=== PATIENT | female | born 1935 | race Caucasian/White ===

== ENCOUNTER 2019-04-01 15:09 | Emergency (ER) | payer MEDICARE, OTHER, SELFPAY ==
--- NOTE | 2019-04-01 | CTR_ITS ---
PROCEDURE INFORMATION: Exam: CT Head Without Contrast Exam date and time: 04/01/2019 3:47 PM Age: 83 years old Clinical indication: Injury or trauma; Fall; Initial encounter; Blunt trauma (contusions or hematomas) and laceration; Consciousness not specified; Without residual foreign body; Scalp; Additional info: Fall head lac TECHNIQUE: Imaging protocol: Computed tomography of the head without contrast. Total DLP: 769.58 mGy-cm Radiation optimization: All CT scans at this facility use at least one of these dose optimization techniques: automated exposure control; mA and/or kV adjustment per patient size (includes targeted exams where dose is matched to clinical indication); or iterative reconstruction. COMPARISON: No relevant prior studies available. FINDINGS: Brain: There is diffuse volume loss and periventricular low-density compatible with small-vessel disease changes. Mild encephalomalacia of the left cerebellum is noted. There is no midline shift. Ventricles: The ventricular size is appropriate. Bones/joints: Unremarkable. No acute fracture. Sinuses: Visualized sinuses are unremarkable. No fluid levels. Mastoid air cells: Visualized mastoid air cells are well aerated. Soft tissues: Left frontal scalp laceration/hematoma with superficial skin dipika is identified. CT/CT head wo con* [id number] IMPRESSION: 1. Left frontal scalp laceration/hematoma with superficial skin dipika is identified. 2. No acute intracranial abnormality. Chronic findings are noted as above. Radiation Dose CTDIVOL = (mGy): DLP = 769.58 (mGy-cm)
--- NOTE | 2019-04-01 | CTR_ITS ---
PROCEDURE INFORMATION: Exam: CT Cervical Spine Without Contrast Exam date and time: 04/01/2019 3:47 PM Age: 83 years old Clinical indication: Injury or trauma; Fall; Initial encounter; Blunt trauma TECHNIQUE: Imaging protocol: Computed tomography images of the cervical spine without contrast. Total DLP: 307.85 mGy-cm Radiation optimization: All CT scans at this facility use at least one of these dose optimization techniques: automated exposure control; mA and/or kV adjustment per patient size (includes targeted exams where dose is matched to clinical indication); or iterative reconstruction. COMPARISON: No relevant prior studies available. FINDINGS: Vertebrae: No acute fracture. Normal alignment. Severe diffuse degenerative changes are noted with disc space narrowing and small endplate osteophytes. Degenerative appearing anterior listhesis of C6 on C7 is noted. No acute fracture. Discs/Spinal canal/Neural foramina: Moderate diffuse foraminal narrowing is noted in the cervical spine from C4-T1 bilaterally due to marked bony proliferative changes. Soft tissues: Unremarkable. Lungs: Severe emphysematous changes are noted. The lung apices are otherwise clear. CT/CT cervical spin wo con* [id number] IMPRESSION: No acute fracture. Radiation Dose CTDIVOL = (mGy): DLP = 307.85 (mGy-cm)
[2019-04-01 15:10] VITALS: BP 109/54; PULSE 97; RESP 17; TEMP 36.8; O2SAT 96; BMI 22.8
--- NOTE | 2019-04-01 15:18 | ED_ITS ---
Entered by Rachel Vargas, acting as scribe for HPI - Syncope General: Chief Complaint: Syncope Stated Complaint: LAC TO HEAD S/P FALL Time Seen by Provider: 04/01/19 15:17 Source: patient Mode of arrival: EMS Limitations: no limitations History of Present Illness: HPI narrative: 83 yo Female presents to ED with complaint of syncope and head laceration post fall. Pt states she was using the restroom when she passed out and fell off the toilet hitting her head. Pt has a laceration to the top of her head. Pt also has a skin tear to her left hand MD complaint: loss of consciousness Onset (ago): hour(s) Witnessed: No Context: during exertion (attempting to use the bathroom) Injuries sustained associated with event: head Review of Systems General: Reports: 10 or more systems reviewed and unremarkable except in HPI and below Card: Reports: syncope GI: Reports: constipation Skin/Breast: Reports: other (laceration to top of head) PFSH ED PFSH: Statuses (acute, chronic, etc) shown below reflect problem list status as previously entered and may not be historically accurate Social History Smoking and tobacco status: former smoker Physical Exam Const: COMMON NORMALS: no apparent distress, average body habitus, oriented x3, no limitations, healthy appearing, alert and well nourished HENMT: COMMON NORMALS: normocephalic, hearing grossly normal bilaterally, external ears normal, EAC's normal, TM's normal bilaterally, external nose kary l, nasal mucous membranes and turbinates normal, moist oral mucous membranes, oropharynx normal, dentition normal and gingiva normal; head/scalp not atraumatic HEAD & SCALP: normocephalic and laceration; not atraumatic NOSE: external nose normal and nasal mucous membranes and turbinates normal EXTERNAL EAR: Yes external ears normal EXTERNAL AUDITORY CANAL: EAC's normal TYMPANIC MEMBRANE: TM's normal bilaterally Eye: COMMON NORMALS: PERRL, EOMs intact bilaterally, conjunctivae normal, no scleral icterus, no papilledema, normal visual chirinos by confrontation and fundi normal bilaterally CONJUNCTIVA: Yes conjunctivae normal PUPIL: Yes PERRL DIRECT OPHTHALMOSCOPY: Yes no papilledema and Yes fundi normal bilaterally Neck/C-Spine: COMMON NORMALS: full ROM, no lymphadenopathy, supple, no meningeal signs, no JVD, thyroid normal and no carotid bruits THYROID: thyroid normal Chest: COMMONS NORMALS: inspection of chest normal and palpation of chest normal Resp: COMMON NORMALS: normal respiratory effort, no retractions, no use of accessory muscles, clear to auscultation bilaterally and percussion normal AUSCULTATION: clear to auscultation bilaterally PERCUSSION: percussion normal Cardio: COMMON NORMALS: no JVD, regular rate, regular rhythm, S1 normal heart sound, S2 normal heart sound, no gallops, no clicks, no murmurs, no rub and peripheral pulses 2+ throughout RATE: regular rate RHYTHM: regular rhythm HEART SOUNDS: S1 normal and S2 normal PERIPHERAL PULSES: pulses 2+ throughout GI: COMMON NORMALS: normal to inspection, nondistended, normoactive bowel sounds, soft to palpation, non-tender, no hepatosplenomegaly, no masses and no bruits PALPATION: Yes soft and Yes no hepatosplenomegaly : COMMON NORMALS: Yes no CVA tenderness and Yes external appearance normal BLADDER/KIDNEY EXAM: Yes no CVA tenderness Back/Pelvis: COMMON NORMALS: no CVA tenderness, thoracic and lumbar spine normal to inspection, no thoracic nor lumbar tenderness, thoraco-lumbar ROM normal and straight leg raise negative bilaterally Extremity: COMMON NORMALS: normal to inspection, full ROM, normal capillary refill, no joint enlargement, no clubbing, cyanosis or edema, no calf tenderness and no pedal edema Neuro: COMMON NORMALS: oriented x3 SENSORIUM/ORIENTATION: Yes alert MENINGEAL SIGNS: Yes no meningeal signs Skin: COMMON NORMALS: no rashes or lesions noted, no wounds, skin turgor normal, no jaundice, no petechiae and no mottling GENERAL SKIN EXAM: no rashes or lesions noted and turgor normal Procedures Laceration Laceration 1: Site: scalp Size (cm): 12 Description: flap, irregular and clean Depth: involves muscle layer Local Anesthetic: lidocaine 1% and with epi Amount of anesthesia used (mL): 8 Pre-repair: wound explored and irrigated extensively Skin layer closed with: other (surgical dipika) Subcutaneous layer closed with: vicryl Size: 4-0 Course Vital Signs: Vital signs: Vital Signs Temperature 98.2 F 04/01/19 15:10 Pulse Rate 76 04/01/19 16:51 Respiratory Rate 20 H 04/01/19 16:51 Blood Pressure 119/63 04/01/19 16:51 Pulse Oximetry 94 04/01/19 16:51 MDM - Syncope Lab Data: Labs: Lab Results 04/01/19 04/01/19 04/01/19 Range/Units 15:59 15:59 15:59 WBC 9.5 (4.0-10.0) 10^3/ uL RBC 4.14 (4.1-5.3) 10^6/u L Hgb 13.2 (11.5-15.3) g/dL Hct 40.0 (37.0-47.0) % MCV 96.6 (81-99) fL MCH 31.9 (28.0-34.0) pg MCHC 33.0 (30.0-36.0) g/dL RDW 14.3 (12.1-15.1) % Plt Count 281 (130-400) 10^3/c mm MPV 9.5 (7.4-10.4) fL Neut % (Auto) 73.6 % Lymph % (Auto) 17.6 % Hamblen % (Auto) 7.2 % Eos % (Auto) 0.6 % Baso % (Auto) 0.6 % Neut # (Auto) 7.0 (1.8-7.7) 10^3/u L Lymph # (Auto) 1.7 (0.8-4.8) 10^3/u L Hamblen # (Auto) 0.7 (0.2-0.9) 10^3/u L Eos # (Auto) 0.1 (0.0-0.8) 10^3/u L Baso # (Auto) 0.1 (0.0-0.1) 10^3/u L Nucleated RBC % (a uto) 0 % Nucleated RBCs # 0.0 /100WBC Sodium 138 (136-145) mmol/L Potassium 3.9 (3.5-5.1) mmol/L Chloride 102 (98-107) mmol/L Carbon Dioxide 21 L (22-29) mmol/L Anion Gap 18.9 (5-19) BUN 27 H (8-23) mg/dL Creatinine 1.1 H (0.5-0.9) mg/dL Glucose 181 H (74-106) mg/dL Lactate 2.5 H (0.5-2.2) mmol/L Calcium 10.2 (8.8-10.2) mg/Dl Total Bilirubin 0.4 (0.15-1.2) mg/dL AST 29 (0-32) U/L ALT 27 (0-33) U/L Alkaline Phosphata se 132 H (35-105) IU/L Troponin T Baselin e (0-10) ng/mL Total Protein 7.0 (6.6-8.7) g/dL Albumin 4.3 (3.5-5.2) g/dL Globulin 2.7 (1.3-4.6) g/dL Urine Color (Yellow) Urine Appearance (CLEAR) Urine pH (5-7) Ur Specific Gravit y (1.005-1.030) Urine Protein (Negative) Urine Glucose (UA) (Normal) Urine Ketones (Negative) Urine Occult Blood (Negative) Urine Nitrate (Negative) Urine Bilirubin (NEGATIVE) Urine Urobilinogen (Negative) mg/dL Ur Leukocyte Pam ase (Negative) Urine RBC (0-2) /hpf Urine WBC (0-5) /hpf Ur Squamous Epith Cells (0-5) Urine Bacteria (NONE) Hyaline Casts Urine Mucus 04/01/19 04/01/19 Range/Units 15:59 16:32 WBC (4.0-10.0) 10^3/ uL RBC (4.1-5.3) 10^6/u L Hgb (11.5-15.3) g/dL Hct (37.0-47.0) % MCV (81-99) fL MCH (28.0-34.0) pg MCHC (30.0-36.0) g/dL RDW (12.1-15.1) % Plt Count (130-400) 10^3/c mm MPV (7.4-10.4) fL Neut % (Auto) % Lymph % (Auto) % Hamblen % (Auto) % Eos % (Auto) % Baso % (Auto) % Neut # (Auto) (1.8-7.7) 10^3/u L Lymph # (Auto) (0.8-4.8) 10^3/u L Hamblen # (Auto) (0.2-0.9) 10^3/u L Eos # (Auto) (0.0-0.8) 10^3/u L Baso # (Auto) (0.0-0.1) 10^3/u L Nucleated RBC % (a uto) % Nucleated RBCs # /100WBC Sodium (136-145) mmol/L Potassium (3.5-5.1) mmol/L Chloride (98-107) mmol/L Carbon Dioxide (22-29) mmol/L Anion Gap (5-19) BUN (8-23) mg/dL Creatinine (0.5-0.9) mg/dL Glucose (74-106) mg/dL Lactate (0.5-2.2) mmol/L Calcium (8.8-10.2) mg/Dl Total Bilirubin (0.15-1.2) mg/dL AST (0-32) U/L ALT (0-33) U/L Alkaline Phosphata se (35-105) IU/L Troponin T Baselin e 19 H (0-10) ng/mL Total Protein (6.6-8.7) g/dL Albumin (3.5-5.2) g/dL Globulin (1.3-4.6) g/dL Urine Color Yellow (Yellow) Urine Appearance Sl hazy (CLEAR) Urine pH 5 (5-7) Ur Specific Gravit y 1.025 (1.005-1.030) Urine Protein Neg (Negative) Urine Glucose (UA) Norm (Normal) Urine Ketones Negative (Negative) Urine Occult Blood Neg (Negative) Urine Nitrate Negative (Negative) Urine Bilirubin Neg (NEGATIVE) Urine Urobilinogen Norm (Negative) mg/dL Ur Leukocyte Pam ase Negative (Negative) Urine RBC None (0-2) /hpf Urine WBC 0-4 H (0-5) /hpf Ur Squamous Epith Cells 10-15 H (0-5) Urine Bacteria Trace (NONE) Hyaline Casts 25-40 H Urine Mucus 1+ Imaging Data^: CT C-Spine: Radiologist's impression: [address] [address] [address] Scan Report Signed Patient: Elsa Faust MR#: [id number] : 1935 Acct:[id number] Age/Sex: 83 / F ADM Date: 04/01/19 Loc: ER Attending Dr: Ordering Physician: Parminder Borja DO Date of Service: 04/01/19 Procedure(s): CT cervical spin wo con* [id number] Accession Number(s): [id number] cc: Parminder Borja DO PROCEDURE INFORMATION: Exam: CT Cervical Spine Without Contrast Exam date and time: 04/01/2019 3:47 PM Age: 83 years old Clinical indication: Injury or trauma; Fall; Initial encounter; Blunt trauma TECHNIQUE: Imaging protocol: Computed tomography images of the cervical spine without contrast. Total DLP: 307.85 mGy-cm Radiation optimization: All CT scans at this facility use at least one of these dose optimization techniques: automated exposure control; mA and/or kV adjustment per patient size (includes targeted exams where dose is matched to clinical indication); or iterative reconstruction. COMPARISON: No relevant prior studies available. FINDINGS: Vertebrae: No acute fracture. Normal alignment. Severe diffuse degenerative changes are noted with disc space narrowing and small endplate osteophytes. Degenerative appearing anterior listhesis of C6 on C7 is noted. No acute fracture. Discs/Spinal canal/Neural foramina: Moderate diffuse foraminal narrowing is noted in the cervical spine from C4-T1 bilaterally due to marked bony proliferative changes. Soft tissues: Unremarkable. Lungs: Severe emphysematous changes are noted. The lung apices are otherwise clear. CT/CT cervical spin wo con* [id number] IMPRESSION: No acute fracture. Radiation Dose CTDIVOL = (mGy): DLP = 307.85 (mGy-cm) Dictated By: Shari Palm 04/01/19 1612 Signed By: Shari Palm 04/01/[address] Head: Radiologist's impression: [address] [address] [address] Scan Report Signed Patient: Elsa Faust MR#: [id number] : 1935 Acct:[id number] Age/Sex: 83 / F ADM Date: 04/01/19 Loc: ER Attending Dr: Ordering Physician: Parminder Borja DO Date of Service: 04/01/19 Procedure(s): CT head wo con* [id number] Accession Number(s): [id number] cc: Parminder Borja DO PROCEDURE INFORMATION: Exam: CT Head Without Contrast Exam date and time: 04/01/2019 3:47 PM Age: 83 years old Clinical indication: Injury or trauma; Fall; Initial encounter; Blunt trauma (contusions or hematomas) and laceration; Consciousness not specified; Without residual foreign body; Scalp; Additional info: Fall head lac TECHNIQUE: Imaging protocol: Computed tomography of the head without contrast. Total DLP: 769.58 mGy-cm Radiation optimization: All CT scans at this facility use at least one of these dose optimization techniques: automated exposure control; mA and/or kV adjustment per patient size (includes targeted exams where dose is matched to clinical indication); or iterative reconstruction. COMPARISON: No relevant prior studies available. FINDINGS: Brain: There is diffuse volume loss and periventricular low-density compatible with small-vessel disease changes. Mild encephalomalacia of the left cerebellum is noted. There is no midline shift. Ventricles: The ventricular size is appropriate. Bones/joints: Unremarkable. No acute fracture. Sinuses: Visualized sinuses are unremarkable. No fluid levels. Mastoid air cells: Visualized mastoid air cells are well aerated. Soft tissues: Left frontal scalp laceration/hematoma with superficial skin dipika is identified. CT/CT head wo con* [id number] IMPRESSION: 1. Left frontal scalp laceration/hematoma with superficial skin dipika is identified. 2. No acute intracranial abnormality. Chronic findings are noted as above. Radiation Dose CTDIVOL = (mGy): DLP = 769.58 (mGy-cm) Dictated By: Shari Palm 04/01/19 1610 Signed By: Shari Palm 04/01/19 1612 Discharge Plan Discharge Patient Disposition: Home, Self-Care Clinical Impression: Vasovagal syncope Scalp laceration Qualifiers: Encounter type: initial encounter Qualified Code(s): S01.01XA - Laceration without foreign body of scalp, initial encounter Condition: Stable Discharge Orders: Discharge Order (Routine); Ordered 04/01/19 Ordered By: Parminder Borja Referrals: Selma Aviles DO [Primary Care Provider] - Discharge Diet: Usual diet Discharge Activity: staple removal in 10 days Patient Instructions: Scalp Laceration, Laceration (ED), Wound Care (General) Coding Level of Care Code ED Drill Press Operator For Metal for Chg Fwd Exam Problem Focused The documentation recorded by the Alicia patricio Carmen, accurately reflects the service I personally performed and the decisions made by me, Parminder Borja, Apr 01, 2019 15:09
--- NOTE | 2019-04-01 15:45 | ECG_ITS ---
Measurements Intervals [place] Rate: 99 P: 84 W[place]: 133 QRS: 82 QRSD: 94 T: 59 QT: 355 QTc: 457 SINUS RHYTHM WITH OCCASIONAL ECTOPIC PREMATURE COMPLEXES Compared to ECG 06/27/2018 09:32:48 Ectopic atrial rhythm no longer present Atrial abnormality no longer present Electronically Signed On 04-02-2019 5:56:59 BUS GREASER by Olga Larose M.D. [id number]
[2019-04-01 16:02] VITALS: BP 108/54; PULSE 81; RESP 18; O2SAT 91
[2019-04-01 16:07] LABS: Basophils # 0.1 10^3/uL (0.0-0.1); Basophils % 0.6 %; Eosinophils # 0.1 10^3/uL (0.0-0.8); Eosinophils % 0.6 %; Hemoglobin 13.2 g/dL (11.5-15.3); Lymphocytes # 1.7 10^3/uL (0.8-4.8); Lymphocytes % 17.6 %; Mean Corpuscular Hemoglobin 31.9 pg (28.0-34.0); Mean Corpuscular Volume 96.6 fL (81-99); Mean Platelet Volume 9.5 fL (7.4-10.4); Monocytes # 0.7 10^3/uL (0.2-0.9); Monocytes % 7.2 %; Neutrophils % 73.6 %; Nucleated Red Blood Cells % 0 %; Platelet Count 281 10^3/cmm (130-400); Red Blood Count 4.14 10^6/uL (4.1-5.3); Red Cell Distribution Width 14.3 % (12.1-15.1); White Blood Count 9.5 10^3/uL (4.0-10.0)
[2019-04-01] MEDS: sodium chloride 0.9% 1,000 ML 999 ML IV (16:11)
[2019-04-01] MEDS: ondansetron 2 mg/ML SDV 2 mL 4 MG IVP (16:11)
[2019-04-01 16:31] VITALS: BP 119/63; PULSE 81; RESP 17; O2SAT 94
[2019-04-01 16:37] LABS: Lactate (Lactic Acid level) 2.5 mmol/L (0.5-2.2)
[2019-04-01 16:38] LABS: Alanine Aminotransferase 27 U/L (0-33); Albumin Level 4.3 g/dL (3.5-5.2); Alkaline Phosphatase 132 IU/L (35-105); Anion Gap 18.9 (5-19); Aspartate Amino Transferase 29 U/L (0-32); Blood Urea Nitrogen 27 mg/dL (8-23); Calcium 10.2 mg/Dl (8.8-10.2); Carbon Dioxide 21 mmol/L (22-29); Chloride 102 mmol/L (98-107); Globulin 2.7 g/dL (1.3-4.6); Glucose 181 mg/dL (74-106); Potassium 3.9 mmol/L (3.5-5.1); Sodium 138 mmol/L (136-145); Total Bilirubin 0.4 mg/dL (0.15-1.2); Troponin(5th) Baseline 19 ng/mL (0-10)
[2019-04-01 16:51] VITALS: BP 119/63; PULSE 76; RESP 20; O2SAT 94
[2019-04-01 17:22] LABS: Bilirubin Urine Neg (NEGATIVE); Blood Urine Neg (Negative); Glucose Urine UA Norm (Normal); Ketones Urine Negative (Negative); Leukocyte Esterase Urine Negative (Negative); Nitrate Urine Negative (Negative); Protein Urine Neg (Negative); Specific Gravity, Urine 1.025 (1.005-1.030); Urine Appearance SL Hazy (CLEAR); Urine Color Yellow (Yellow); Urobilinogen Urine Norm (Negative); pH Urine 5 (5-7)
[2019-04-01 17:23] LABS: WBC Urine 0-4 /hpf (0-5)
[2019-04-01 17:24] LABS: Bacteria Urine TRACE; Hyaline Casts Urine 25-40; Mucus Urine 1+
[2019-04-01 17:25] LABS: Add Urine Culture? No
[2019-04-01 17:44] VITALS: BP 94/52; PULSE 82; RESP 18; O2SAT 93
--- NOTE | 2019-04-01 17:45 | ECG_ITS ---
Measurements Intervals [place] Rate: 99 P: 84 [place]: 133 QRS: 82 QRSD: 94 T: 59 QT: 355 QTc: 457 SINUS RHYTHM WITH OCCASIONAL ECTOPIC PREMATURE COMPLEXES Compared to ECG 06/27/2018 09:32:48 Ectopic atrial rhythm no longer present Atrial abnormality no longer present Electronically Signed On 04-02-2019 6:01:48 ICT ANALYST by Olga Larose M.D. [email or web address]
== END 2019-04-01 18:12 | disposition home or self-care (01) ==
PROVIDERS: Emergency Provider Family Medicine; Family Provider Family Medicine; PCP Family Medicine
DX: R55 Syncope and collapse (principal); S01.01XA Laceration without foreign body of scalp, initial encounter; W18.11XA Fall from or off toilet without subsequent striking against object, initial encounter; Z87.891 Personal history of nicotine dependence
CPT/HCPCS: 13121; 13122; 70450; 72125; 80053; 81001; 83605; 84484; 85025; 93005; 96360; 96361; 96372; 96374; 99283; J2001; J2405; J7030

== ENCOUNTER 2019-04-26 10:03 | Outpatient (CLI) | payer MEDICARE, OTHER, SELFPAY ==
--- NOTE | 2019-04-26 10:18 | MM_ITS ---
WS: [id number] SCREENING DIGITAL MAMMOGRAM WITH CAD HISTORY: SCREENING COMPARISON: 01/18/2018 and 05/27/2010 Bilateral CC and MLO views submitted. Computer aided detection analyzed. Breast composition: There are scattered areas of fibroglandular density. No suspicious masses, microc alcifications or architectural distortion. Nipple are very slightly inverted and not in profile. Willa lar appearance to prior studies. Benign calcification medial LEFT breast. MM/[place] [id number] IMPRESSION: BI-RADS: 2-Benign FOLLOW UP: 1 Year Follow-up
== END 2019-04-26 10:04 | disposition home or self-care (01) ==
LOC: RADSHAW 10:15
PROVIDERS: Family Provider Family Medicine; PCP Family Medicine; Visit Provider Family Medicine
DX: Z12.31 Encounter for screening mammogram for malignant neoplasm of breast (principal)
CPT/HCPCS: 77067

== ENCOUNTER → 2019-05-01 09:38 | Outpatient (BNVA) | payer MEDICARE, OTHER, SELFPAY | PROVIDERS: Family Provider Family Medicine; PCP Family Medicine; Visit Provider Family Medicine | DX: K52.9 Noninfective gastroenteritis and colitis, unspecified (principal); R79.89 Other specified abnormal findings of blood chemistry | CPT/HCPCS: 80053; 87493; 87505 ==

== ENCOUNTER 2019-08-02 12:43 | Outpatient (CLI) | payer MEDICARE, OTHER, SELFPAY ==
--- NOTE | 2019-08-02 15:15 | XR_ITS ---
WS: [id number] DEXA (DUAL ENERGY X-RAY ABSORPTIOMETRY) Bone mineral density was performed using a Apprion machine. HISTORY: DEXA COMPARISON: None available. Lumbar spine BMD (L1-L4): 1.037 g/cm2 T score: -1.2 Z score: 1.2 Total hip BMD: Left: 0.836 g/cm2. T score: -1.4 Z score: 1.2 Right: 0.803 g/cm2. T score: -1.6 Z score: 0.9 10 year probability of a major osteoporotic fracture is 11%. XR/XR DEXA axial skeleton* [id number] IMPRESSION: OSTEOPENIA based upon the WHO classification for females.
== END 2019-08-02 12:44 | disposition home or self-care (01) ==
LOC: RADWPI 12:47
PROVIDERS: Family Provider Family Medicine; PCP Family Medicine; Visit Provider Family Medicine
DX: Z78.0 Asymptomatic menopausal state (principal); M85.89 Other specified disorders of bone density and structure, multiple sites
CPT/HCPCS: 77080

== ENCOUNTER → 2019-08-13 10:00 | Outpatient (BNVA) | payer MEDICARE, OTHER, SELFPAY | PROVIDERS: Family Provider Family Medicine; PCP Family Medicine; Visit Provider Internal Medicine | DX: K52.9 Noninfective gastroenteritis and colitis, unspecified (principal) | CPT/HCPCS: 84443 ==

== ENCOUNTER 2019-08-17 09:06 | Day surgery (SDC) | payer MEDICARE, OTHER, SELFPAY ==
[2019-08-15 12:14] VITALS: BMI 23.0
--- NOTE | 2019-08-17 09:12 | P.HP_ITS ---
Same Day Surgery H&P Indication for Procedure/HPI DATE OF PROCEDURE: August 17, 2019 CHIEF COMPLAINT/INDICATIONFOR SURGICAL PROCEDURE: Chronic diarrhea PREOP DIAGNOSIS: Chronic diarrhea PLANNED PROCEDRUE: Operation Date: 08/17/19 10:40 Proposed Procedures p EGD/COLON 51402 23023 K52.9(Not Applicable) - Pal Medrano MD s Colonoscopy(Not Applicable) - Pal Medrano MD Medications/Allergies* Home Medications Medication Instructions Recorded Confirmed Type aspirin 81 mg tablet,delayed 81 mg PO ONCE 04/10/19 08/13/19 History release clopidogrel 75 mg tablet 75 mg PO DAILY tab 04/28/19 08/13/19 History Allergies/Adverse Reactions Allergy/AdvReac Type Severity Reaction Status Date / Time amoxicillin [From Augmentin] Allergy ALGY-Swell Verified 08/13/19 14:36 Lip/Tongue/Throat clavulanic acid Allergy ALGY-Swell Verified 08/13/19 14:36 [From Augmentin] Lip/Tongue/Throat Sulfa (Sulfonamide Allergy ALGY-Swell Verified 08/13/19 14:36 Antibiotics) Lip/Tongue/Throat Pertinent History/Comorbid Conditions* Medical History (Updated 07/03/19 @ 10:42 by Cristo Abdi MD) COPD (chronic obstructive pulmonary disease) Dyslipidemia Leriche syndrome Mesenteric artery stenosis PAD (peripheral artery disease) Tobacco abuse Surgical History (Updated 07/03/19 @ 10:42 by Cristo Abdi MD) H/O: hysterectomy History of cholecystectomy History of tonsillectomy S/P aortobifemoral bypass surgery Family History (Updated 04/28/19 @ 11:57 by Rena Kaufman LPN) CAD (coronary artery disease) Cancer Social History Smoking and tobacco status: former smoker Alcohol intake: never Pertinent Exam Findings alert, oriented x 3, clear to auscultation bilaterally, regular rate & rhythm, operative site marked and procedure specific exam findings Recommendations Surgery/Procedure today Coding Level of Care Code Acute Environmental Science Program Director for Yenifer Quick
[2019-08-17 09:30] VITALS: BP 85/59; PULSE 89; RESP 18; TEMP 36.4; O2SAT 95
[2019-08-17] MEDS: sodium chloride 0.9% 1,000 ML 30 ML IV (09:52)
--- NOTE | 2019-08-17 10:02 | ANES.PREANE2 ---
Pre-Anesthetic Assessment Pre-Anesthetic Assessment: Height/Weight: Height 1.52 m Weight 53.524 kg Temp Pulse Resp BP Pulse Ox 97.6 F 89 18 85/59 95 08/17/19 09:30 08/17/19 09:30 08/17/19 09:30 08/17/19 09:30 08/17/19 09:30 Preop Diagnosis: Colitis Proposed Procedure: Operation Date: 08/17/19 10:40 Proposed Procedures p EGD/COLON 24636 [id number] K52.9(Not Applicable) - Pal Medrano MD s Colonoscopy(Not Applicable) - Pal Medrano MD Familial anesthetic complications: None Was Beta Lucia taken within 24 hours: N/A Last intake: Intake Last Liquid Date 08/16/19 Last Liquid Time 21:30 Last Solid Date 08/16/19 Last Solid Time 18:00 Social: Social History: No alcohol and No tobacco Exam: Pre-Anes Outpt Exam: alert, oriented x 3, clear to auscultation bilaterally and regular rate & rhythm Airway: Cervical ROM: WNL MP: 2 Additional comments: edentulous Pulmonary: Pulmonary: None reported CV/HEM: CV/HEM: PVD (on cilostazol and plavix (last took plavix yesterday morning)) : : None reported Hepatic: Hepatic: None reported GI: GI: None reported Metabolic: Metabolic: None reported Musc/skel: Musc/skel: None reported Neuropsych: Neuropsych: None reported Anesthetic Plan: ASA status: 2 Anesthesia: MAC Risk of > 500 ml blood loss (7ml/kg in children): No Meds/Allergies Current Medications: Current Medications Generic Name Dose Route Start Last Admin Trade Name Freq PRN Reason Stop Dose Admin Sodium Chloride 1,000 mls @ 30 ml s/hr 08/17/19 09:30 08/17/19 09:52 Sodium Chloride 0.9% IV 30 mls/hr .Q24H JAROD Administration PFSH Anesthesia PFSH: Medical History COPD (chronic obstructive pulmonary disease) Dyslipidemia Leriche syndrome Mesenteric artery stenosis PAD (peripheral artery disease) Tobacco abuse Surgical History H/O: hysterectomy History of cholecystectomy History of tonsillectomy S/P aortobifemoral bypass surgery Family History Other CAD (coronary artery disease) Cancer Social History Smoking and tobacco status: former smoker Alcohol intake: never Female Reproductive History: Para: 1 Spontaneous abortions: No Data Anesthesia Cardiac Studies: No Data to Display
[2019-08-17 12:20] VITALS: BP 122/73; PULSE 78; RESP 18; TEMP 36; O2SAT 100
[2019-08-17 12:52] VITALS: BP 142/89; PULSE 89; RESP 18; O2SAT 93
[2019-08-21 11:25] LABS: H. Pylori / CLO Test Negative
== END 2019-08-17 13:00 | disposition home or self-care (01) ==
PROVIDERS: PCP Family Medicine; Visit Provider Internal Medicine
PROC: 0DJ08ZZ Inspection of Upper Intestinal Tract, Via Natural or Artificial Opening Endoscopic (ICD-10-PCS; CPT 43235; principal; 2019-08-17 10:35)
PROC: 0DJD8ZZ Inspection of Lower Intestinal Tract, Via Natural or Artificial Opening Endoscopic (ICD-10-PCS; CPT 45378; 2019-08-17 10:35)
DX: K52.9 Noninfective gastroenteritis and colitis, unspecified (principal); K29.70 Gastritis, unspecified, without bleeding; K57.30 Diverticulosis of large intestine without perforation or abscess without bleeding; J44.9 Chronic obstructive pulmonary disease, unspecified; E78.5 Hyperlipidemia, unspecified; F17.210 Nicotine dependence, cigarettes, uncomplicated; Z82.49 Family history of ischemic heart disease and other diseases of the circulatory system
CPT/HCPCS: 12345; 43239; 45378; 82274; 83630; 87077; 87493; 87506; J2704; J7030

== ENCOUNTER 2020-01-18 12:31 | Outpatient (CLI) | payer MEDICARE, OTHER, SELFPAY ==
--- NOTE | 2020-01-18 12:45 | USCV_ITS ---
Elsa Faust Age: 84 Gender: F : 1935 Exam Date: 01/18/2020 13:10 Ordering Phys: Zachery Conklin M.D ([email or web address]) Technologist: Bismark Patterson Exam Location: [facility] Indication: SOB BP: 110 / 68 HR: 80 Rhythm: Sinus Technical Quality: Fair MEASUREMENTS (Male / Female) Normal Values 2D ECHO LV Diastolic Diameter PLAX 3.1 cm 4.2 - 5.9 / 3.9 - 5.3 cm LV Systolic Diameter PLAX 1.7 cm IVS Diastolic Thickness 1.0 cm 0.6 - 1.0 / 0.6 - 0.9 cm IVS Systolic Thickness 1.3 cm LVPW Diastolic Thickness 0.9 cm 0.6 - 1.0 / 0.6 - 0.9 cm LVPW Systolic Thickness 1.4 cm LVOT Diameter 2.0 cm LV Ejection Fraction 2D Teich 77.2 % LV Ejection Fraction MOD 2C 82.4 % LV Ejection Fraction 2C AL 82.8 % LA Diameter 2.7 cm LA Width 2.6 cm LA Height 2.9 cm RA Width 2.4 cm RA Height 3.2 cm Aorta at Sinotubular Diameter 0.8 cm M-MODE LV Diastolic Diameter MM 5.4 cm 4.2 - 5.9 / 3.9 - 5.3 cm LV Systolic Diameter MM 3.5 cm LV Ejection Fraction MM Teich 62.4 % IVS Diastolic Thickness MM 0.8 cm 0.6 - 1.0 / 0.6 - 0.9 cm IVS Systolic Thickness MM 1.4 cm LVPW Diastolic Thickness MM 1.1 cm 0.6 - 1.0 / 0.6 - 0.9 cm LVPW Systolic Thickness MM 1.9 cm RV Diastolic Diameter MM 1.3 cm Aortic Annulus Diameter 2.7 cm LA Ao Ratio MM 1.2 MV E Point Septal Separation 0.9 cm DOPPLER AV Peak Velocity 193.0 cm/s LVOT Peak Velocity 118.0 cm/s AV Area Cont Eq vti 1.9 cm squared AV Area Cont Eq pk 1.8 cm squared MV Area PHT 5.0 cm squared Mitral E to A Ratio 0.7 MV E' Velocity 34.5 cm/s Mitral E to MV E' Ratio 7.3 Mitral E to LV E' Lateral Ratio 6.4 Mitral E to LV E' Septal Ratio 8.4 TR Peak Velocity 123.0 cm/s TR Peak Gradient 6.1 mmHg TV Peak E Velocity 76.0 cm/s Right Atrial Pressure 3.0 mmHg Pulmonary Artery Systolic Pressu 9.1 mmHg PV Peak Velocity 108.0 cm/s FINDINGS Left Ventricle Normal left ventricular size, systolic function and wall thickness, with no regional wall motion abnormalities. LVEF is 60 to 65%. Normal left ventricular wall thickness. Grade 1 diastolic dysfunction. Normal filling pressures. Right Ventricle The right ventricle is normal in size and function. Right Atrium The right atrium is normal in size. Left Atrium The left atrium is normal in size. Mitral Valve Structurally normal mitral valve without significant stenosis or prolapse. There is no mitral regurgitation. Aortic Valve Aortic valve is not well-visualized. No significant stenosis.. There is no aortic regurgitation. Tricuspid Valve Structurally normal tricuspid valve without significant stenosis or regurgitation. Insufficient TR jet to calculate RVSP. Pulmonic Valve Pulmonic valve is not well-visualized. There is no pulmonic regurgitation. Pericardium Normal pericardium without effusion. Aorta Normal ascending aorta dimension. CONCLUSIONS LV systolic function is normal with EF of 60 to 65%. Grade 1 diastolic dysfunction with normal filling pressures. No significant valvular heart disease is noted. Compared to prior study from 03/07/2018, no significant changes are noted. Zachery Conklin MD (Electronically Signed) Final Date: 22 January 2020 17:17 S
== END 2020-01-18 12:32 | disposition home or self-care (01) ==
LOC: RAD 12:35
PROVIDERS: PCP Family Medicine; Visit Provider Internal Medicine
DX: R06.02 Shortness of breath (principal)
CPT/HCPCS: 93306

== ENCOUNTER 2020-04-02 08:54 | Outpatient (CLI) | payer MEDICARE, OTHER, SELFPAY ==
--- NOTE | 2020-04-02 08:59 | MR_ITS ---
WS: [id number] MRI BRAIN WITH HIGH-RESOLUTION IMAGING THROUGH THE INTERNAL AUDITORY CANALS WITHOUT AND WITH CONTRAST HISTORY: Bilateral SENSORINEURAL HEARING LOSS COMPARISON: 01/19/2010 TECHNIQUE: Multiplanar, multisequence imaging is performed through the brain. Additional 3 mm imaging performed in multiple planes through the internal auditory canal. Postcontrast imaging with 20 ml's of Prohance. No acute intracranial hemorrhage, midline shift, edema or mass effect. No acute infarcts. Mild cerebral atrophy and moderate chronic microvascular ischemic disease. Additio nal chronic ischemic changes bilaterally within the eden. No prior infarcts. There has been a moderat e progression of the chronic ischemic changes since 2009. Ventricles and extra-axial spaces are normal. No inferior displacement of cerebellar tonsils. Clivus and pituitary gland are normal. Internal and external auditory canals: Unremarkable. Cranial nerves VII and VIII complexes: Unremarkable. No enhancement or mass. Cerebellopontine angles: Normal. Paranasal sinuses: Normal. Mastoid air cells: Small amount of fluid in the LEFT mastoid air cells. Coalescence of air cells in t he LEFT posterior mastoid air cells. On the recent CT this may be an area of fibrous dysplasia. Calvarium and scalp: Normal. Visualized mechoopda of Smalls and dural venous sinuses demonstrate no abnormality. MR/MR iac's wo/w con* [id number] IMPRESSION: Normal MRI IACs. Moderate progression of chronic microvascular ischemic changes throughout the w rios matter and bilaterally within the eden since 2009.
== END 2020-04-02 08:55 | disposition home or self-care (01) ==
LOC: RADSHAW 08:57
PROVIDERS: PCP Family Medicine; Visit Provider Specialist
DX: H90.3 Sensorineural hearing loss, bilateral (principal)
CPT/HCPCS: 70553; A9579

== ENCOUNTER 2020-05-28 14:35 | Outpatient (CLI) | payer MEDICARE, OTHER, SELFPAY ==
--- NOTE | 2020-05-28 14:40 | MM_ITS ---
WS: [id number] BILATERAL SCREENING DIGITAL MAMMOGRAM WITH CAD HISTORY: SCREENING COMPARISON: 04/26/2019, 01/18/2018 Bilateral CC and MLO views submitted. Computer aided detection analyzed. Breast composition: There are scattered areas of fibroglandular density. No suspicious masses, microc alcifications or architectural distortion. Difficulty obtaining lateral and craniocaudad images of th e LEFT breast with the nipple in profile. After several images the appearance of the LEFT breast is s imilar to prior studies. No suspicious masses or calcifications. MM/[place] [id number] IMPRESSION: BI-RADS: 2-Benign FOLLOW UP: 1 Year Follow-up
== END 2020-05-28 14:36 | disposition home or self-care (01) ==
LOC: RADSHAW 14:37
PROVIDERS: PCP Family Medicine; Visit Provider Family Medicine
DX: Z12.31 Encounter for screening mammogram for malignant neoplasm of breast (principal)
CPT/HCPCS: 77067

== ENCOUNTER → 2020-06-27 11:25 | Outpatient (BNVA) | payer MEDICARE, OTHER, SELFPAY | PROVIDERS: PCP Family Medicine; Visit Provider Internal Medicine | DX: R06.02 Shortness of breath (principal) | CPT/HCPCS: 82785; 85025; 86003 ==

== ENCOUNTER 2020-07-14 15:05 | Outpatient (CLI) | payer MEDICARE, OTHER, SELFPAY ==
--- NOTE | 2020-07-14 15:13 | XRR_ITS ---
PROCEDURE INFORMATION: Exam: XR Abdomen Exam date and time: 07/14/2020 3:15 PM Age: 85 years old Clinical indication: Condition or disease; Other: K52.9 - noninfective gastroenteritis and colitis, unspecified; Prior surgery; Surgery type: Gb, bypass, aorta, hyst TECHNIQUE: Imaging protocol: XR of the abdomen. Views: Frontal supine view of the abdomen. 1 View. COMPARISON: 1. CR Upper GI w Air and SBS* [id number] 01/31/2018 8:[address] abdomen pelvis w con* [id number] 12/14/2016 9:20:14 AM FINDINGS: Gastrointestinal tract: Small hyperdensities in the pelvis which could represent ingested materials. Organs: The gallbladder is likely surgically absent, with metallic clips overlying the gallbladder fossa. Vasculature: Calcification of the left upper quadrant splanchnic vasculature is present. The iliac arteries show moderate bilateral atherosclerotic calcifications without evidence of aneurysm. Bones/joints: Bilateral lower lumbar facet primary osteoarthritis. XR/XR KUB [id number] IMPRESSION: 1. Prior cholecystectomy. 2. No acute abdominal or pelvic abnormality identified.
== END 2020-07-14 15:06 | disposition home or self-care (01) ==
LOC: RAD 15:10
PROVIDERS: PCP Family Medicine; Visit Provider Internal Medicine
DX: K52.9 Noninfective gastroenteritis and colitis, unspecified (principal); Z90.49 Acquired absence of other specified parts of digestive tract
CPT/HCPCS: 74018; 83630; 87493; 87506

== ENCOUNTER 2020-09-01 08:42 | Outpatient (CLI) | payer MEDICARE, OTHER, SELFPAY ==
[2020-09-01 09:19] VITALS: BMI 21.4
--- NOTE | 2020-09-01 09:49 | NMCV_ITS ---
NM ji perf SPECT r/s* [id number] Ivelisse Faustline Age: 85 Gender: F : 1935 Exam Date: 09/01/2020 10:31 Ordering Phys: Hernando Ivan MD Technologist: JORGE Walls Exam Location: [facility] Indications: SHORTNESS OF BREATH STRESS TEST Please see separate stress test report in [facility] for full findings IMAGE PROTOCOL Rest/Stress 1 Lexiscan Day Radiopharmaceutical Dose (mCi) Administration Site Administered by Rest: Tc-99m 10.8 IV JORGE Walls Sestamibi Stress:Tc-99m 32.2 IV JORGE Hernández Sestamibi Rest: 01-Sep-2020 60 Discovery 630 Stress: 01-Sep-2020 30 Discovery 630 0.4mg Lexiscan. Images obtained in supine and prone position. SPECT RESULTS Technical Quality: Excellent Raw Data Analysis: Normal Image Corrections: No attenuation or motion correction applied Summed Stress Score: 0 Summed Rest Score: 0 Summed Difference Score: 0 PERFUSION FINDINGS There is homogenous radiotracer uptake throughout the myocardium. No evidence of ischemia FUNCTIONAL RESULTS (calculated via Gated SPECT) Stress Image LV EF (%): 86 Stress EDV (mL):57 TID: 0.8 Stress ESV (mL):8 FUNCTIONAL FINDINGS: There is normal left ventricular systolic function. IMPRESSIONS 1. Normal myocardial perfusion imaging with no evidence of ischemia 2. LV systolic function is normal Zachery Conklin MD (Electronically Signed) Final Date: 02 September 2020 15:25 S
--- NOTE | 2020-09-01 09:49 | ECG_ITS ---
[facility] Test Date: 2020-09-01 Pat Name: Elsa Faust Department: Room: Gender: Female [employer] Sales Representative: : 1935 Requested By: [employer]Place Marzena Order Number: [id number] Martni MD: Zachery Conklin M.D. Interpretive Statements NAME OF STUDY: LEXISCAN SESTAMIBI STRESS TEST INDICATION: [Shortness of Breath, ] Procedure: At the baseline, the blood pressure was 163/80 mmHg with a heart rate of 69 bpm. The electrocardiogram showed normal sinus rhythm, normal axis with normal ST and T's. The Lexiscan was infused over a period of 20 seconds. A total of 0.4 mg of Lexiscan was infused. The stress phase was continued for a total of 5 minutes. Heart rate was at the end of stress phase was 92 bpm and a blood pressure of 133/66 mmHg. The EKG at the peak infusion revealed since normal sinus rhythm with no significant ST-T wave changes. Sestamibi was injected 20 seconds after the Lexiscan infusion. Blood pressure at the end of recovery phase was 130/66 mmHg with a heart rate of 90 bpm. Conclusion: 1. Normal EKG response to Lexiscan infusion 2. No Lexiscan induced chest pain or cardiac arrhythmia. 3. Normal blood pressure and heart rate response. 4. Sestamibi/sestamibi perfusion scan pending; see separate report. Electronically Signed On 10-19-2020 18:01:00 CDT by Zachery Conklin M.D. [id number]
[2020-09-01] MEDS: regadenoson 0.4 Mg/5 ml Syringe IVP (11:04)
[2020-09-01 11:21] VITALS: BP 130/66; PULSE 91
== END 2020-09-01 08:43 | disposition home or self-care (01) ==
LOC: CDL 08:45
PROVIDERS: PCP Family Medicine; Visit Provider Internal Medicine Critical Care Medicine
DX: R06.02 Shortness of breath (principal)
CPT/HCPCS: 78452; 93017; A9500; J2785

== ENCOUNTER 2020-09-03 12:50 | Outpatient (CLI) | payer MEDICARE, OTHER, SELFPAY ==
--- NOTE | 2020-09-03 13:30 | CT_ITS ---
WS: [id number] CT ABDOMEN PELVIS TECHNIQUE: Contrast-enhanced CT of the abdomen and pelvis with coronal and sagittal reformatted image s. CLINICAL INFORMATION: ongoing abdominal pain COMPARISON: CT November 2016 DLP: 643.[address] scans at [facility] use at least one of these dose optimization techniques: automat ed exposure control; mA and/or kV adjustment per patient size (includes targeted exams where dose is matched to clinical indication); or iterative reconstruction. FINDINGS: Diffuse fatty infiltration liver. Normal portal vein and splenic vein. Small esophageal hiatal hernia . Normal spleen. Lung bases are well aerated. Prior cholecystectomy. Normal portal vein and splenic v ein. Prominent common bile duct likely physiologic postcholecystectomy unchanged. Slight prominence of the small bowel loops with air-fluid levels. Persistent air within the colon. No evidence of high-grade obstruction. Sigmoid diverticulosis. No evidence of acute diverticulitis. Tin y fat-containing umbilical hernia. No herniated bowel aortoiliac bypass graft appears patent. Dense c alcification with occlusion of the [place] distal aorta unchanged. Urine distended bladder. Adrenal glands are normal. Normal renal parenchymal enhancement. No hydronep hrosis. No free fluid in the pelvis. Disc space narrowing worse L5-S1. CT/CT abdomen pelvis w con* [id number] IMPRESSION: 1. Slightly prominent small bowel loops with air-fluid levels. Persistent air within the colon. No evidence of high-grade obstruction. 2. Diffuse fatty infiltration liver. Hepatomegaly. 3. Prior cholecystectomy. 4. Urine distended bladder. 5. Patent aortoiliac bypass graft. 6. Small esophageal hiatal hernia. 7. Diverticulosis.
[2020-09-03 13:38] LABS: Blood Urea Nitrogen 28 mg/dL (8-23)
[2020-09-03] MEDS: iohexol 300 mg/mL 50 mL Btl PO (13:39)
[2020-09-03] MEDS: iodixanol 320 mg/mL 100mL Btl IV (13:52)
== END 2020-09-03 12:51 | disposition home or self-care (01) ==
PROVIDERS: PCP Family Medicine; Visit Provider Internal Medicine
DX: R10.9 Unspecified abdominal pain (principal); K76.0 Fatty (change of) liver, not elsewhere classified; R16.0 Hepatomegaly, not elsewhere classified; Z90.49 Acquired absence of other specified parts of digestive tract; N32.89 Other specified disorders of bladder; K44.9 Diaphragmatic hernia without obstruction or gangrene; K57.90 Diverticulosis of intestine, part unspecified, without perforation or abscess without bleeding
CPT/HCPCS: 74177; 82565; 84520; Q9967

== ENCOUNTER → 2020-09-04 09:11 | Outpatient (BNVA) | payer MEDICARE, OTHER, SELFPAY | PROVIDERS: PCP Family Medicine; Visit Provider Family Medicine | DX: E78.5 Hyperlipidemia, unspecified (principal); K52.9 Noninfective gastroenteritis and colitis, unspecified | CPT/HCPCS: 80053; 80061 ==

== ENCOUNTER → 2020-11-16 13:24 | Outpatient (BNVA) | payer MEDICARE, OTHER, SELFPAY | PROVIDERS: PCP Family Medicine; Visit Provider Nurse Practitioner | DX: M25.532 Pain in left wrist (principal) | CPT/HCPCS: 73110 ==

== ENCOUNTER → 2021-02-17 14:36 | Outpatient (BNVA) | payer MEDICARE, OTHER, SELFPAY | PROVIDERS: PCP Family Medicine; Visit Provider Specialist | DX: R20.0 Anesthesia of skin (principal); R20.2 Paresthesia of skin; M25.531 Pain in right wrist; M25.532 Pain in left wrist; Z87.891 Personal history of nicotine dependence | CPT/HCPCS: 95910 ==

== ENCOUNTER → 2021-04-09 15:48 | Outpatient (BNVA) | payer MEDICARE, OTHER, SELFPAY | PROVIDERS: PCP Family Medicine; Visit Provider Family Medicine | DX: M79.641 Pain in right hand (principal); M79.642 Pain in left hand; L57.0 Actinic keratosis; G56.90 Unspecified mononeuropathy of unspecified upper limb; Z68.20 Body mass index [BMI] 20.0-20.9, adult; F17.211 Nicotine dependence, cigarettes, in remission | CPT/HCPCS: 80053; 85025; 85651; 86038; 86140; 86200; 86431 ==

== ENCOUNTER → 2021-05-14 09:12 | Outpatient (BNVA) | payer MEDICARE, OTHER, SELFPAY | PROVIDERS: PCP Family Medicine; Visit Provider Internal Medicine Rheumatology | DX: M05.79 Rheumatoid arthritis with rheumatoid factor of multiple sites without organ or systems involvement (principal); Z79.899 Other long term (current) drug therapy; M15.4 Erosive (osteo)arthritis; Z11.59 Encounter for screening for other viral diseases; Z11.1 Encounter for screening for respiratory tuberculosis; N18.9 Chronic kidney disease, unspecified; Z71.85 Encounter for immunization safety counseling | CPT/HCPCS: 99204 ==

== ENCOUNTER → 2021-06-23 13:28 | Outpatient (BNVA) | payer MEDICARE, OTHER, SELFPAY | PROVIDERS: PCP Family Medicine; Visit Provider Internal Medicine Critical Care Medicine | DX: J44.9 Chronic obstructive pulmonary disease, unspecified (principal); I49.9 Cardiac arrhythmia, unspecified; J30.9 Allergic rhinitis, unspecified; Z87.891 Personal history of nicotine dependence | CPT/HCPCS: 99214 ==

== ENCOUNTER → 2021-07-07 13:10 | Outpatient (BNVA) | payer MEDICARE, OTHER, SELFPAY | PROVIDERS: PCP Family Medicine; Visit Provider Internal Medicine | DX: J44.9 Chronic obstructive pulmonary disease, unspecified (principal); I73.9 Peripheral vascular disease, unspecified; E78.5 Hyperlipidemia, unspecified; Z95.828 Presence of other vascular implants and grafts; Z87.891 Personal history of nicotine dependence | CPT/HCPCS: 99213; 99214 ==

== ENCOUNTER → 2021-07-21 08:41 | Outpatient (BNVA) | payer MEDICARE, OTHER, SELFPAY | PROVIDERS: PCP Family Medicine; Visit Provider Otolaryngology | DX: D23.22 Other benign neoplasm of skin of left ear and external auricular canal (principal); Z87.891 Personal history of nicotine dependence | CPT/HCPCS: 99203 ==

== ENCOUNTER 2021-08-03 14:35 | Outpatient (CLI) | payer MEDICARE, OTHER, SELFPAY ==
--- NOTE | 2021-08-03 14:57 | MM_ITS ---
WS: [id number] BILATERAL 3D TOMOSYNTHESIS DIGITAL SCREENING MAMMOGRAPHY WITH CAD CLINICAL INFORMATION: SCREENING HISTORY: Screening mammogram. No current complaints. COMPARISON: May 28, 2020 TECHNIQUE: Bilateral CC and MLO views. FINDINGS: Scattered fibroglandular densities bilaterally. Lucent centered calcification LEFT breast. No suspici ous focal mass, asymmetry, calcifications, or architectural distortion. No evidence of malignancy. MM/[place] [id number] IMPRESSION: BI-RADS: 2-Benign FOLLOW UP: 1 Year Follow-up Recommend return to annual screening mammography.
[2021-08-03 15:14] LABS: Basophils # 0.1 10^3/uL (0.0-0.1); Basophils % 0.5 %; Eosinophils # 0.1 10^3/uL (0.0-0.8); Eosinophils % 1.4 %; Hematocrit 42.5 % (37.0-47.0); Hemoglobin 13.8 g/dL (11.5-15.3); Lymphocytes % 21.4 %; Mean Corpuscular HGB Conc 32.5 g/dL (30.0-36.0); Mean Corpuscular Volume 98.6 fl (81-99); Mean Platelet Volume 9.7 fL (7.4-10.4); Monocytes % 11.3 %; Neutrophils # 5.97 10^3/uL (1.8-7.7); Nucleated Red Blood Cells % 0 %; Platelet Count 251 10^3/cmm (130-400); Red Blood Count 4.31 10^6/uL (4.1-5.3); Red Cell Distribution Width 15.1 % (12.1-15.1); White Blood Count 9.2 10^3/uL (4.0-10.0)
[2021-08-03 15:29] LABS: Alanine Aminotransferase 19 U/L (0-33); Albumin Level 3.9 g/dL (3.5-5.2); Alkaline Phosphatase 108 IU/L (35-105); Aspartate Amino Transferase 23 U/L (0-32); Total Bilirubin 0.3 mg/dL (0.15-1.2); Total Protein 6.9 g/dL (6.6-8.7)
== END 2021-08-03 14:36 | disposition home or self-care (01) ==
LOC: RADSHAW 14:39
PROVIDERS: PCP Family Medicine; Referring Provider Internal Medicine Rheumatology; Visit Provider Family Medicine
DX: Z12.31 Encounter for screening mammogram for malignant neoplasm of breast (principal); M05.79 Rheumatoid arthritis with rheumatoid factor of multiple sites without organ or systems involvement; Z79.899 Other long term (current) drug therapy
CPT/HCPCS: 36415; 77063; 77067; 80076; 82565; 85025; 86140

== ENCOUNTER → 2021-08-10 10:59 | Outpatient (BNVA) | payer MEDICARE, OTHER, SELFPAY | PROVIDERS: PCP Family Medicine; Visit Provider Internal Medicine Rheumatology | DX: M05.79 Rheumatoid arthritis with rheumatoid factor of multiple sites without organ or systems involvement (principal); M15.4 Erosive (osteo)arthritis; Z79.899 Other long term (current) drug therapy; Z79.52 Long term (current) use of systemic steroids; N18.9 Chronic kidney disease, unspecified; Z71.85 Encounter for immunization safety counseling | CPT/HCPCS: 99214 ==

== ENCOUNTER → 2021-12-01 09:23 | Outpatient (BNVA) | payer MEDICARE, OTHER, SELFPAY | PROVIDERS: PCP Family Medicine; Visit Provider Otolaryngology | DX: B37.0 Candidal stomatitis (principal); Z87.891 Personal history of nicotine dependence | CPT/HCPCS: 99213 ==

== ENCOUNTER 2021-12-01 09:52 | Outpatient (CLI) | payer MEDICARE, OTHER, SELFPAY ==
[2021-12-01 11:06] LABS: Basophils # 0.1 10^3/uL (0.0-0.1); Basophils % 0.7 %; Eosinophils # 0.1 10^3/uL (0.0-0.8); Eosinophils % 1.3 %; Hematocrit 42.8 % (37.0-47.0); Hemoglobin 13.8 g/dL (11.5-15.3); Lymphocytes # 1.6 10^3/uL (0.8-4.8); Mean Corpuscular HGB Conc 32.2 g/dL (30.0-36.0); Mean Corpuscular Hemoglobin 32.5 pg (28.0-34.0); Mean Corpuscular Volume 100.7 fl (81-99); Mean Platelet Volume 9.5 fL (7.4-10.4); Monocytes # 0.8 10^3/uL (0.2-0.9); Monocytes % 9.6 %; Neutrophils # 6.09 10^3/uL (1.8-7.7); Neutrophils % 69.8 %; Nucleated Red Blood Cells % 0 %; Platelet Count 227 10^3/cmm (130-400); Red Blood Count 4.25 10^6/uL (4.1-5.3); Red Cell Distribution Width 14.6 % (12.1-15.1); White Blood Count 8.7 10^3/uL (4.0-10.0)
[2021-12-01 11:25] LABS: Alanine Aminotransferase 23 U/L (0-33); Albumin Level 4.6 g/dL (3.5-5.2); Alkaline Phosphatase 118 U/L (35-105); Aspartate Amino Transferase 26 U/L (0-32); C Reactive Protein 5.8 mg/L (0.0-4.9); Globulin 2.4 g/dL (1.3-4.6); Total Bilirubin 0.5 mg/dL (0.15-1.2)
== END 2021-12-01 09:53 | disposition home or self-care (01) ==
LOC: LAB 09:55
PROVIDERS: PCP Family Medicine; Visit Provider Internal Medicine Rheumatology
DX: M05.79 Rheumatoid arthritis with rheumatoid factor of multiple sites without organ or systems involvement (principal); Z79.899 Other long term (current) drug therapy; M19.90 Unspecified osteoarthritis, unspecified site
CPT/HCPCS: 36415; 80076; 82565; 85025; 86140

== ENCOUNTER → 2021-12-09 10:45 | Outpatient (BNVA) | payer MEDICARE, OTHER, SELFPAY | PROVIDERS: PCP Family Medicine; Visit Provider Internal Medicine Rheumatology | DX: M05.79 Rheumatoid arthritis with rheumatoid factor of multiple sites without organ or systems involvement (principal); M15.4 Erosive (osteo)arthritis; Z79.899 Other long term (current) drug therapy; Z71.85 Encounter for immunization safety counseling; N18.9 Chronic kidney disease, unspecified; Z79.52 Long term (current) use of systemic steroids | CPT/HCPCS: 99214 ==

== ENCOUNTER → 2021-12-30 09:51 | Outpatient (BNVA) | payer MEDICARE, OTHER, SELFPAY | PROVIDERS: PCP Family Medicine; Visit Provider Otolaryngology | DX: B37.0 Candidal stomatitis (principal) | CPT/HCPCS: 99213 ==

== ENCOUNTER → 2022-01-05 14:41 | Outpatient (BNVA) | payer MEDICARE, OTHER, SELFPAY | PROVIDERS: PCP Family Medicine; Visit Provider Internal Medicine | DX: I73.9 Peripheral vascular disease, unspecified (principal); J44.9 Chronic obstructive pulmonary disease, unspecified; E78.5 Hyperlipidemia, unspecified; Z95.828 Presence of other vascular implants and grafts | CPT/HCPCS: 99213; 99214 ==

== ENCOUNTER → 2022-01-13 15:16 | Outpatient (BNVA) | payer MEDICARE, OTHER, SELFPAY | PROVIDERS: PCP Family Medicine; Visit Provider Otolaryngology | DX: R13.10 Dysphagia, unspecified (principal) | CPT/HCPCS: 31575; 99213 ==

== ENCOUNTER → 2022-02-01 09:26 | Outpatient (BNVA) | payer MEDICARE, OTHER, SELFPAY | PROVIDERS: PCP Family Medicine; Visit Provider Otolaryngology | DX: K13.79 Other lesions of oral mucosa (principal) | CPT/HCPCS: 99214 ==

== ENCOUNTER 2022-02-04 09:10 | Day surgery (SDC) | payer MEDICARE, OTHER, SELFPAY ==
[2022-02-03 12:39] VITALS: BMI 18.4
[2022-02-04 10:11] VITALS: BP 150/62; PULSE 82; RESP 18; TEMP 37; O2SAT 94
--- NOTE | 2022-02-04 10:39 | W.PM.OPSUD ---
Surgery/Procedure H&P Update DATE OF PROCEDURE: February 04, 2022 DATE H&P PERFORMED: 02/01/22 H&P UPDATE INFORMATION: I have reviewed H&P completed within last 30 days, I have examined patient prior to procedure and No changes to prior documentation CHANGES TO PREVIOUS DOCUMENTATION: No changes PREOP DIAGNOSIS: Oral mucosal mass PRIMARY INDICATION FOR PROCEDURE: Left retromolar trigone soft tissue mass PLANNED PROCEDURE: Operation Date: 02/04/22 11:05 Proposed Procedures p [id number]- Exision of left oral mucosal lesion with frozen section K13.79(Left) - Dave Mix MD
[2022-02-04] MEDS: sodium chloride 0.9% 1,000 ML 30 ML IV (10:48)
[2022-02-04] MEDS: levofloxacin-dextrose 5 % 500 MG/100 ML PREMIX 100 MG IV (12:22)
--- NOTE | 2022-02-04 13:25 | PM.OP ---
Operative Report Date of procedure: February 04, 2022 Pre-op diagnosis: Preop Diagnosis Oral mucosal mass Post-op diagnosis: Same Post-op findings: 1 cm mucosal covered raised lesion left retromolar trigone mucous membrane excised completely. Procedure done: Excision of left retromolar trigone mass/lesion. Implants: No implants Specimens removed/disposition: Left retromolar trigone mass excised. Pathology: Left retromolar trigone mass forwarded to pathology for frozen section. No malignancy identified. Surgeon: Dave Mix MD Anesthesia: General and Local Estimated blood loss: 15 mL Complications: No complications encountered Findings: Patient has a raised 1 cm mass mucosal covered extending between the upper and lower alveolar ridges posteriorly in the retromolar trigone area. It is firm. No ulceration or erythema. Dentist wanted this removed for diagnostic purposes. Therefore the patient is being brought to the operating room for this procedure. Brief History: 86-year-old female patient who is edentulous has a 1 cm raised pink mucosal covered firm mass in the left retromolar trigone mucous membrane region. It is not painful. It does not bleed. Concerned that this could be a neoplasm. Patient therefore being brought to the operating room to undergo excision of this mass with frozen section and treatment as needed. The procedure its risks and complications were explained and understood. Informed consent was granted and witnessed. Risks included bleeding and infection and scarring and swelling and bruising and recurrence and need for additional treatment. Also anesthetic risks. Procedure: Description of procedure: The patient was placed on the operating table in the supine position. Adequate general endotracheal tube anesthesia was obtained. She was given antibiotics for prophylaxis. The table was rotated 90 degrees. Her head was dropped 15 degrees to the horizontal. Eyes were taped shut and head drape was applied in usual fashion. At this point a timeout was accomplished identifying the patient date of plan procedure allergies fire risk and medications given. With all in agreement the procedure continued. A Jin Shmuel mouthgag was inserted over the endotracheal tube and tongue ensuring that the upper gingiva was in the guard. This was positioned such that the tongue was held out of the surgical site. The lesion in the left retromolar trigone area was very obvious at this point. This mass was palpated and found to be definitely firm and indurated. Not mobile. I excised the mass with small margins down to the underlying musculature. Specimen was forwarded to the pathologist for frozen section diagnosis. Pressure was applied for about 10 minutes. Then hemostasis was attained with needle tip Bovie. Further pressure was applied until the frozen section returned as benign with no evidence of malignancy. With that information in hand with no active bleeding seen the defect was closed with a running 3-0 Vicryl suture. No bleeding was seen after this. It was irrigated with saline. No bleeding again. A throat pack that had been placed at the beginning of the procedure was removed. The throat was suctioned with Yankauer suction. Again no bleeding was noted. Patient was then returned to anesthesiology for wake-up and extubation. The patient tolerated the procedure well and estimated blood loss of 15 mL and arrived in recovery in stable condition.
[2022-02-04 13:30] VITALS: BP 102/56; PULSE 79; RESP 23; TEMP 36.6; O2SAT 99
[2022-02-04 13:35] VITALS: BP 108/61; PULSE 76; RESP 30; O2SAT 98
[2022-02-04 13:40] VITALS: BP 117/66; PULSE 75; RESP 24; O2SAT 94
[2022-02-04 13:44] VITALS: BP 119/66; PULSE 76; RESP 22; TEMP 37; O2SAT 94
[2022-02-04 13:54] VITALS: BP 115/61; PULSE 77; RESP 18; TEMP 36.8; O2SAT 90
--- NOTE | 2022-02-04 13:55 | ANES.PREANE2 ---
Pre-Anesthetic Assessment Height/Weight: Height 1.57 m Weight 45.813 kg Temp Pulse Resp BP Pulse Ox O2 Del Method O2 Flow Rate 98.2 F 77 18 115/61 90 10 02/04/22 13:54 02/04/22 13:54 02/04/22 13:54 02/04/22 13:54 02/04/22 13:54 02/04/22 13:54 02/04/22 13:35 Preop Diagnosis: Oral mucosal mass Operation Date: 02/04/22 11:05 Proposed Procedures p 61053- Exision of left oral mucosal lesion with frozen section K13.79(Left) - Dave Mix MD Familial anesthetic complications: none Was Beta Lucia taken within 24 hours: N/A Was Clonidine taken within 24 hours: N/A Last intake: Intake Last Liquid Date 02/03/22 Last Liquid Time 21:00 Last Solid Date 02/03/22 Last Solid Time 18:00 Social No alcohol and No tobacco (h/o smoking) Exam alert, oriented x 3, clear to auscultation bilaterally and regular rate & rhythm Airway Submandibular: within normal limits Cervical ROM: within normal limits Mallampati: Class II Pulmonary Chronic Obstructive Pulmonary Disease CV/HEM Arrythmia and Peripheral Vascular Disease GI Gastroesophageal Reflux Disease Musc/skel Osteoarthritis/DJD and Rheumatoid Arthritis Neuropsych Neuropathy Anesthetic Plan ASA status: 3 Anesthesia: Choice Medications/Allergies Home Medications Medication Instructions Recorded Confirmed Last Taken Type Lactobacillus acidophilus 10 mg PO DAILY 07/29/20 02/04/22 02/03/22 History (Acidophilus capsule) clopidogrel 75 mg tablet (Plavix) 75 mg PO DAILY #90 tabs 07/07/21 02/04/22 02/03/22 Rx leflunomide 20 mg tablet 20 mg PO DAILY #30 tabs 12/09/21 02/04/22 02/03/22 Rx pantoprazole 40 mg tablet,delayed 40 mg PO DAILY #30 tabs 12/17/21 02/04/22 02/03/22 Rx release tramadol 50 mg tablet 50 mg PO BID PRN pain #60 tabs 12/29/21 02/03/22 Unknown Rx cetirizine 10 mg capsule (Zyrtec) 10 mg PO DAILY 02/03/22 02/04/22 02/03/22 History cilostazol 100 mg tablet 100 mg PO BID 02/03/22 02/04/22 02/03/22 History dicyclomine 10 mg capsule 10 mg PO TID PRN abdominal 02/03/22 02/04/22 02/03/22 History distention Allergies Allergy/AdvReac Type Severity Reaction Status Date / Time amoxicillin [From Augmentin] Allergy ALGY-Swell Verified 02/03/22 12:36 Lip/Tongue/Throat clavulanic acid Allergy ALGY-Swell Verified 02/03/22 12:36 [From Augmentin] Lip/Tongue/Throat gabapentin Allergy ADR-Confusi Verified 02/03/22 12:36 on Sulfa (Sulfonamide Allergy ALGY-Swell Verified 02/03/22 12:36 Antibiotics) Lip/Tongue/Throat Current Medications Generic Name Dose Route Start Last Admin Trade Name Freq PRN Reason Stop Dose Admin Sodium Chloride 1,000 mls @ 30 mls/hr 02/04/22 09:45 02/04/22 10:48 Sodium Chloride 0.9% IV 02/05/22 09:44 30 mls/hr .Q24H JAROD Administration PFSH Anesthesia Medical History Acute rheumatoid arthritis Allergic rhinosinusitis COPD (chronic obstructive pulmonary disease) Dyslipidemia Erosive osteoarthritis of both hands Exertional shortness of breath High risk medication use Immunization counseling 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 H/O: hysterectomy History of cholecystectomy History of tonsillectomy S/P aortobifemoral bypass surgery Family History Other CAD (coronary artery disease) Cancer Rheumatoid arthritis Social History Smoking and tobacco status: never smoked Quit status (tobacco): has quit using tobacco Year quit tobacco: 2016 Former quit date comment: 2PPD x 60 Years, started smoking at age 19 Second hand smoke exposure: No Smoking risk assessment/counseling performed?: No Alcohol intake: never Counseling given: No Counseling given: No Lives independently: Yes Household members: none Marital status: / Current occupational status: retired History of recent travel: No Current gender identity: Female Female Reproductive History Para: 1 Spontaneous abortions: No Data Anesthesia Cardiac Studies: Echocardiogram Ultrasound 01/18/20 Sestamibi Stress Test (Cardiology) 09/01/20
--- NOTE | 2022-02-04 15:27 | ANE.PACU2 ---
Inpatient post-anesthesia follow up: Airway intact: Yes Vital signs: Temperature 98.2 F Pulse Rate 77 Respiratory Rate 18 Blood Pressure 115/61 Pulse Oximetry 90 Oxygen Delivery Me thod Room Air Oxygen Flow Rate 10 Fraction of Inspir ed Oxygen Hydration adequate: Yes Nausea and vomiting: No Pain level: 2 Mental status: Baseline
== END 2022-02-04 14:24 | disposition home or self-care (01) ==
PROVIDERS: PCP Family Medicine; Visit Provider Otolaryngology
PROC: (CPT 40810; principal; 2022-02-04 10:55)
DX: K13.79 Other lesions of oral mucosa (principal); J44.9 Chronic obstructive pulmonary disease, unspecified; K21.9 Gastro-esophageal reflux disease without esophagitis; M06.9 Rheumatoid arthritis, unspecified; E78.5 Hyperlipidemia, unspecified; Z79.899 Other long term (current) drug therapy
CPT/HCPCS: 40810; 88305; 88331; J1956; J2370; J2405; J3010; J3490; J7030

== ENCOUNTER → 2022-02-10 08:18 | Outpatient (BNVA) | payer MEDICARE, OTHER, SELFPAY | PROVIDERS: PCP Family Medicine; Visit Provider Otolaryngology | DX: Z48.814 Encounter for surgical aftercare following surgery on the teeth or oral cavity (principal); K13.79 Other lesions of oral mucosa | CPT/HCPCS: 99024 ==

== ENCOUNTER 2022-02-23 14:04 | Emergency (ER) | payer MEDICARE, OTHER, SELFPAY ==
[2022-02-23 14:11] VITALS: BP 113/65; PULSE 108; RESP 16; TEMP 37; O2SAT 95; BMI 19.9
--- NOTE | 2022-02-23 14:56 | W.ED.GENADLT ---
HPI - General Adult General: Chief complaint: General Medical Stated complaint: postsurgery on mouth complication Time Seen by Provider: 02/23/22 14:20 History of Present Illness: Patient is a 86-year-old female comes to the ED with postsurgical complication. 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 Mix back on February 04. They used absorbable sutures. One of the absorbable sutures is still present and has a long tail that is been bothering her. She also states that this morning she woke up and for the first time she had some bleeding from procedure site. Bleeding resolved later this morning. she denies any re-bleeding. Associated symptoms: Deny chest pain, dyspnea, headache(s), nausea, rash, palpitations or vomiting Review of Systems Const: Denies: fever(s), chills or fatigue Eyes: Denies: change in vision or eye discomfort ENMT: Reports: other (post surgical site in throat complaint); Denies: throat pain, odynophagia, nasal discharge or nasal congestion Card: Denies: chest pain, palpitations, edema, swelling of feet/ankles, dyspnea on exertion or orthopnea Resp: Denies: dyspnea, productive cough or non-productive cough GI: Denies: abdominal pain, nausea, vomiting, diarrhea, constipation or hematochezia : Denies: flank pain, dysuria or hematuria Musc: Denies: neck pain, back pain or extremity swelling Skin/Breast: Denies: rash or new lesions Neuro: Denies: headache(s), numbness in extremities or weakness in extremities PFS ED PFSH: Medical History Acute rheumatoid arthritis Allergic rhinosinusitis COPD (chronic obstructive pulmonary disease) Dyslipidemia Erosive osteoarthritis of both hands Exertional shortness of breath High risk medication use Immunization counseling 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 H/O: hysterectomy History of cholecystectomy History of tonsillectomy S/P aortobifemoral bypass surgery Family History Other CAD (coronary artery disease) Cancer Rheumatoid arthritis Social History Smoking and tobacco status: never smoked Quit status (tobacco): has quit using tobacco Year quit tobacco: 2016 Former quit date comment: 2PPD x 60 Years, started smoking at age 19 Second hand smoke exposure: No Smoking risk assessment/counseling performed?: No Alcohol intake: never Counseling given: No Counseling given: No Lives independently: Yes Household members: none Marital status: / Current occupational status: retired History of recent travel: No Current gender identity: Female Female Reproductive History: Para: 1 Spontaneous abortions: No Physical Exam Const: COMMON NORMALS: no acute distress, patient oriented x3, healthy appearing and alert GENERAL APPEARANCE: cooperative and comfortable HENMT: COMMON NORMALS: normocephalic HEAD & SCALP: normocephalic MOUTH: Normal oral and palatal mucosa present THROAT: posterior oropharynx normal and uvula midline OTHER: Patient's posterior oropharynx region there is suture with a long tail noted. Surgical site is healing well and there is no active bleeding. Neck/C-Spine: COMMON NORMALS: supple GENERAL: Yes normal visual inspection Resp: COMMON NORMALS: normal respiratory effort, No retractions, No use of accessory muscles and clear to auscultation bilaterally AUSCULTATION: clear to auscultation bilaterally Cardio: COMMON NORMALS: regular rate, regular rhythm, S1 normal heart sound present, S2 normal heart sound present, No gallops present (Cardio), No clicks present (Cardio), No murmurs present (Cardio) and Peripheral pulses 2+ throughout RATE: regular rate RHYTHM: regular rhythm HEART SOUNDS: S1 normal heart sound present and S2 normal heart sound present PERIPHERAL PULSES: Peripheral pulses 2+ throughout GI: COMMON NORMALS: Normal to inspection, nondistended, normoactive bowel sounds present, Soft to palpation, non-tender and no masses PALPATION: Yes Soft to palpation : COMMON NORMALS: Yes no CVA tenderness BLADDER/KIDNEY EXAM: Yes no CVA tenderness Back/Pelvis: COMMON NORMALS: no CVA tenderness Extremity: COMMON NORMALS: normal to inspection Neuro: COMMON NORMALS: patient oriented x3 SENSORIUM/ORIENTATION: Yes alert GAIT: Yes Normal gait present Skin: GENERAL SKIN EXAM: dry skin Course ED course: I used a suture removal kit and with the scissors and cut some of the length of the tail off of suture so would be more comfortable for patient. Vital Signs: Vital signs: Vital Signs Temperature 98.6 F 02/23/22 14:11 Pulse Rate 108 H 02/23/22 14:11 Respiratory Rate 16 02/23/22 14:11 Blood Pressure 113/65 02/23/22 14:11 Pulse Oximetry 95 02/23/22 14:11 Oxygen Delivery Me thod 02/23/22 14:11 MDM - General Adult Medical Decision Making Patient is a 86-year-old female comes to the ED with postsurgical complication. 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 Mix back on February 04. They used absorbable sutures. One of the absorbable sutures is still present and has a long tail that is been bothering her. She also states that this morning she woke up and for the first time she had some bleeding from procedure site. Bleeding resolved later this morning. she denies any re-bleeding. Vitals are stable. Patient's posterior oropharynx region there is suture with a long tail noted. Surgical site is healing well and there is no active bleeding. I used a suture removal kit and with the scissors and cut some of the length of the tail off of suture so would be more comfortable for patient. CBC was unremarkable. Patient was stable for discharge home and diagnosed with postsurgical complication. She was told to follow-up with her surgeon at her neck scheduled appointment. Return ED precautions given. Patient understood and agreed with plan. Lab Data I reviewed the patient's lab results. 02/23/22 16:26 Laboratory Results WBC 7.5 10^3/uL (4.0-10.0) 02/23/22 16: RBC 3.92 10^6/uL (4.1-5.3) L 02/23/22 16: Hgb 12.6 g/dL (11.5-15.3) 02/23/22 16: Hct 39.0 % (37.0-47.0) 02/23/22 16: MCV 99.5 fl (81-99) H 02/23/22 16: MCH 32.1 pg (28.0-34.0) 02/23/22 16: MCHC 32.3 g/dL (30.0-36.0) 02/23/22 16: RDW 14.1 % (12.1-15.1) 02/23/22 16: Plt Count 331 10^3/cmm (130-400) 02/23/22 16: MPV 9.4 fL (7.4-10.4) 02/23/22 16: Neut % (Auto) 63.0 % 02/23/22 16: Lymph % (Auto) 23.3 % 02/23/22 16:26 [place] % (Auto) 10.7 % 02/23/22 16: Eos % (Auto) 1.9 % 02/23/22 16: Baso % (Auto) 0.8 % 02/23/22 16: Neut # (Auto) 4.70 10^3/uL (1.8-7.7) 02/23/22 16: Lymph # (Auto) 1.7 10^3/uL (0.8-4.8) 02/23/22 16:26 [place] # (Auto) 0.8 10^3/uL (0.2-0.9) 02/23/22 16:26 Eos # (Auto) 0.1 10^3/uL (0.0-0.8) 02/23/22 16: Baso # (Auto) 0.1 10^3/uL (0.0-0.1) 02/23/22 16: Nucleated RBC % (auto) 0 % 02/23/22 16: Nucleated RBCs # 0.0 /100WBC 02/23/22 16:26 Discharge Plan Discharge Patient Disposition: Home Clinical Impression: Post surgical complication Qualifiers: Surgical complication system/body Area: [id number] Encounter type: initial encounter Condition: Stable Prescriptions: No Action Lactobacillus acidophilus [Acidophilus] Capsule 10 mg PO DAILY Rx Instructions: administer with large glass of water leflunomide 20 mg tablet 20 mg PO DAILY Qty: 30 3RF clopidogrel [Plavix] 75 mg tablet 75 mg PO DAILY Qty: 90 3RF pantoprazole 40 mg tablet,delayed release (DR/EC) 40 mg PO DAILY Qty: 30 8RF tramadol 50 mg tablet 50 mg PO BID PRN (Reason: pain) Qty: 60 0RF cilostazol 100 mg tablet 100 mg PO BID Rx Instructions: Take 1 tablet by mouth twice daily dicyclomine 10 mg capsule 10 mg PO TID PRN (Reason: abdominal distention) Zyrtec 10 mg capsule 10 mg PO DAILY Discharge Orders: Discharge ED (Routine); Ordered 02/23/22 Ordered By: Babar Pineda Referrals: Lynn Montiel DO [Primary Care Provider] - Discharge Diet: Regular Discharge Activity: Resume usual activity Activity Restrictions/Additional Instructions: Follow-up with medical provider as directed. Take medications as prescribed. Return to the ER or your medical provider if condition worsens. Please read and understand discharge instructions. Thank you for choosing [facility] for your healthcare needs today. Please realize this is an emergency room and that we are providing you with a medical screening exam and this may not be complete and all inclusive of all the testing and or work up that you may need to determine your ailment or severity of your illness. It is very important that you follow up as instructed or that you return to the Emergency Department should you have concerns or if your condition changes or worsens in any way. Coding Level of Care Code ED Supervisor Lens Generating for Yenifer Fwd Exam Comprehensive
[2022-02-23 16:34] LABS: Basophils # 0.1 10^3/uL (0.0-0.1); Basophils % 0.8 %; Eosinophils # 0.1 10^3/uL (0.0-0.8); Eosinophils % 1.9 %; Hemoglobin 12.6 g/dL (11.5-15.3); Lymphocytes # 1.7 10^3/uL (0.8-4.8); Lymphocytes % 23.3 %; Mean Corpuscular HGB Conc 32.3 g/dL (30.0-36.0); Mean Corpuscular Hemoglobin 32.1 pg (28.0-34.0); Mean Corpuscular Volume 99.5 fl (81-99); Mean Platelet Volume 9.4 fL (7.4-10.4); Monocytes # 0.8 10^3/uL (0.2-0.9); Monocytes % 10.7 %; Nucleated Red Blood Cells % 0 %; Platelet Count 331 10^3/cmm (130-400); Red Blood Count 3.92 10^6/uL (4.1-5.3); Red Cell Distribution Width 14.1 % (12.1-15.1); White Blood Count 7.5 10^3/uL (4.0-10.0)
== END 2022-02-23 16:51 | disposition home or self-care (01) ==
PROVIDERS: Emergency Provider Physician Assistant; PCP Family Medicine
DX: L76.82 Other postprocedural complications of skin and subcutaneous tissue (principal); Z79.02 Long term (current) use of antithrombotics/antiplatelets; Z87.891 Personal history of nicotine dependence; J44.9 Chronic obstructive pulmonary disease, unspecified; E78.5 Hyperlipidemia, unspecified
CPT/HCPCS: 85025; 99283

== ENCOUNTER → 2022-03-15 12:52 | Outpatient (BNVA) | payer MEDICARE, OTHER, SELFPAY | PROVIDERS: PCP Family Medicine; Visit Provider Otolaryngology | DX: Z48.89 Encounter for other specified surgical aftercare (principal); K13.79 Other lesions of oral mucosa | CPT/HCPCS: 99024; 99212 ==

== ENCOUNTER → 2022-04-12 10:55 | Outpatient (BNVA) | payer MEDICARE, OTHER, SELFPAY | PROVIDERS: PCP Family Medicine; Visit Provider Internal Medicine Rheumatology | DX: M05.79 Rheumatoid arthritis with rheumatoid factor of multiple sites without organ or systems involvement (principal); Z79.899 Other long term (current) drug therapy; M15.4 Erosive (osteo)arthritis; Z71.85 Encounter for immunization safety counseling; N18.9 Chronic kidney disease, unspecified | CPT/HCPCS: 36415; 80076; 82306; 82565; 85025; 86140; 99214 ==

== ENCOUNTER → 2022-04-15 13:16 | Outpatient (BNVA) | payer MEDICARE, OTHER, SELFPAY | PROVIDERS: PCP Family Medicine; Visit Provider Internal Medicine Pulmonary Disease | DX: J44.9 Chronic obstructive pulmonary disease, unspecified (principal); R13.10 Dysphagia, unspecified; R22.1 Localized swelling, mass and lump, neck; R06.02 Shortness of breath; I49.9 Cardiac arrhythmia, unspecified; R68.89 Other general symptoms and signs | CPT/HCPCS: 99214 ==

== ENCOUNTER → 2022-05-17 10:33 | Outpatient (BNVA) | payer MEDICARE, OTHER, SELFPAY | PROVIDERS: PCP Family Medicine; Visit Provider Otolaryngology | DX: Z71.1 Person with feared health complaint in whom no diagnosis is made (principal) | CPT/HCPCS: 99212 ==

== ENCOUNTER 2022-05-19 10:46 | Outpatient (CLI) | payer MEDICARE, OTHER, SELFPAY ==
--- NOTE | 2022-05-19 11:15 | US_ITS ---
WS: [id number] ULTRASOUND THYROID TECHNIQUE: Ultrasound of the thyroid. CLINICAL INFORMATION: lump in throat COMPARISON: None. FINDINGS: Thyroid: Right and left thyroid lobes are normal in size with heterogeneous echotexture. No dominant thyroid nodules to target for biopsy Right thyroid lobe: 3.0 cm x 1.4 cm x 1.1 cm Left thyroid lobe: 2.7 cm x 1.5 cm x 1.6 cm. Isthmus: 0.2 mm. Cervical lymphadenopathy: None. US/US thyroid [id number] IMPRESSION: 1. Heterogeneous thyroid echotexture. 2. No suspicious thyroid nodules. 3. No lymphadenopathy.
== END 2022-05-19 10:47 | disposition home or self-care (01) ==
LOC: RAD 10:49
PROVIDERS: PCP Family Medicine; Visit Provider Internal Medicine Pulmonary Disease
DX: R13.10 Dysphagia, unspecified (principal); R22.1 Localized swelling, mass and lump, neck
CPT/HCPCS: 76536

== ENCOUNTER → 2022-05-27 11:21 | Outpatient (BNVA) | payer MEDICARE, OTHER, SELFPAY | PROVIDERS: PCP Family Medicine; Visit Provider Family Medicine | DX: R53.83 Other fatigue (principal) | CPT/HCPCS: 84439; 84443 ==

== ENCOUNTER → 2022-07-05 10:23 | Outpatient (BNVA) | payer MEDICARE, OTHER, SELFPAY | PROVIDERS: PCP Family Medicine; Visit Provider Internal Medicine Rheumatology | DX: M05.79 Rheumatoid arthritis with rheumatoid factor of multiple sites without organ or systems involvement (principal); M15.4 Erosive (osteo)arthritis; Z79.899 Other long term (current) drug therapy; Z71.85 Encounter for immunization safety counseling | CPT/HCPCS: 80076; 82565; 85025; 86140; 99214 ==

== ENCOUNTER 2022-07-12 13:39 | Emergency (ER) | payer MEDICARE, OTHER, SELFPAY ==
[2022-07-12 13:45] VITALS: BP 171/92; PULSE 98; RESP 19; TEMP 36.3; O2SAT 96; BMI 18.5
[2022-07-12 15:58] VITALS: BP 149/119; PULSE 88; O2SAT 93
[2022-07-12 16:56] VITALS: BP 150/85; PULSE 85; O2SAT 93
--- NOTE | 2022-07-13 05:19 | ED_ITS ---
HPI - General Adult General: Chief complaint: Upper Respiratory Infection Stated complaint: something stuck in throat sob Time Seen by Provider: 07/12/22 15:49 Source: patient Mode of arrival: ambulatory History of Present Illness: 87-year-old female presents emergency room complaining of sensation of something stuck in her throat. She describes as congestion. This has been going on for about 4 years she has had extensive work-up with her including cardiac, surgery for upper endoscopy, ENT. 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 She has an appointment scheduled with Dr. Guillen in 2 days. She comes in today because it seems to be getting worse again. She has no difficulty with speech or swallowing or breathing. This morning she states she felt very weak. She does have a moderate hoarseness to her voice but is at her baseline per her report. She denies any hemoptysis. Denies any halitosis. Onset (ago): year(s) (4-5) Location: neck Severity: mild Quality: other (Globus sensation) Pain Consistency: constant Relieving factors: none Exacerbating factors: none Associated symptoms: Deny chest pain, confusion, cough, diaphoresis, decreased appetite, dyspnea, fevers/chills, headache(s), malaise, nausea, rash, palpitations, seizures, short of breath, syncope, vomiting or weakness Treatments prior to arrival: none Review of Systems Const: Denies: fever(s), chills, fatigue, malaise or diaphoresis ENMT: Denies: throat pain, ear or mastoid pain, nasal discharge or nasal congestion Card: Denies: chest pain, palpitations or syncope Resp: Denies: dyspnea GI: Denies: nausea or vomiting : Denies: flank pain, difficulty voiding, dysuria, urinary frequency or urinary urgency Skin/Breast: Denies: rash Neuro: Denies: headache(s) or confusion PFS ED PFSH: Medical History Acute rheumatoid arthritis Allergic rhinosinusitis COPD (chronic obstructive pulmonary disease) Dyslipidemia Erosive osteoarthritis of both hands Exertional shortness of breath High risk medication use Immunization counseling 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 H/O: hysterectomy History of cholecystectomy History of tonsillectomy S/P aortobifemoral bypass surgery Family History Other CAD (coronary artery disease) Cancer Rheumatoid arthritis Social History Smoking and tobacco status: never smoked Quit status (tobacco): has quit using tobacco Year quit tobacco: 2016 Former quit date comment: 2PPD x 60 Years, started smoking at age 19 Second hand smoke exposure: No Smoking risk assessment/counseling performed?: No Alcohol intake: never Counseling given: No Counseling given: No Lives independently: Yes Household members: none Marital status: / Current occupational status: retired Current gender identity: Female Female Reproductive History: Para: 1 Spontaneous abortions: No Physical Exam Const: GENERAL APPEARANCE: cooperative and comfortable ORIENTATION/CONSCIOUSNESS: Yes awake, Yes oriented to person, Yes oriented to place and Yes oriented to time HENMT: COMMON NORMALS: normocephalic, atraumatic and hearing grossly normal bilaterally HEAD & SCALP: normocephalic and atraumatic Resp: COMMON NORMALS: normal respiratory effort, No retractions, No use of accessory muscles and clear to auscultation bilaterally AUSCULTATION: clear to auscultation bilaterally Cardio: COMMON NORMALS: regular rate, regular rhythm and No murmurs present (Cardio) RATE: regular rate RHYTHM: regular rhythm GI: COMMON NORMALS: Soft to palpation and No hepatosplenomegaly present AUSCULTATION: Yes normoactive bowel sounds PALPATION: Yes Soft to palpation, No Tenderness to palpation present (GI), No Guarding due to palpation present (GI) and Yes No hepatosplenomegaly present Extremity: COMMON NORMALS: normal to inspection, capillary refill normal, no clubbing, cyanosis or edema, no calf tenderness and no pedal edema Neuro: SENSORIUM/ORIENTATION: Yes oriented to person, Yes oriented to place and Yes oriented to time Skin: COMMON NORMALS: no rashes or lesions noted GENERAL SKIN EXAM: no rashes or lesions noted Course Vital Signs: Vital signs: Vital Signs Temperature 97.4 F L 07/12/22 13:45 Pulse Rate 85 07/12/22 16:56 Respiratory Rate 19 H 07/12/22 13:45 Blood Pressure 150/85 07/12/22 16:56 Pulse Oximetry 93 07/12/22 16:56 Oxygen Delivery Me thod Room Air 07/12/22 15:58 MDM - General Adult Medical Decision Making Exam is unremarkable. She did states she felt rather weak this morning she has been anemic in the past she had labs about 1 week ago with a hemoglobin of 10 8. Offered to repeat lab work and get a chest x-ray is just a baseline. After long discussion patient declined. She would prefer at this time to follow-up with ENT. Discussed with her she has had more work-up at this point and were capable of doing in the emergency room. She does not have an emergent condition at this time however we still can do some basic work-up. Ultimately she did decline. We will discharge her home and have her follow-up with ENT as planned. She has any worsening or change of symptoms return to the emergency room, Medical Records I reviewed the patient's medical records. Lab Data I reviewed the patient's lab results. Discharge Plan Discharge Patient Disposition: Home Clinical Impression: Odynophagia Condition: Stable Prescriptions: No Action Lactobacillus acidophilus [Acidophilus] Capsule 10 mg PO DAILY Rx Instructions: administer with large glass of water leflunomide 20 mg tablet See Rx Instructions .ROUTE .COMPLEX Qty: 90 0RF Dose Instruction: TAKE 1 TABLET BY MOUTH EVERY DAY Rx Instructions: TAKE 1 TABLET BY MOUTH EVERY DAY prednisone 10 mg tablet See Rx Instructions PO .COMPLEX PRN (Reason: joint pain) Qty: 30 1RF Rx Instructions: take 1 or 2 tab daily for 3-7 days prn joint pain flare PO PRN; pantoprazole 40 mg tablet,delayed release (DR/EC) 40 mg PO DAILY Qty: 30 8RF tramadol 50 mg tablet 50 mg PO BID PRN (Reason: pain) Qty: 60 0RF dicyclomine 10 mg capsule 10 mg PO TID PRN (Reason: abdominal distention) Qty: 120 2RF clopidogrel [Plavix] 75 mg tablet 75 mg PO DAILY Qty: 90 3RF cilostazol 100 mg tablet 100 mg PO BID Rx Instructions: Take 1 tablet by mouth twice daily Zyrtec 10 mg capsule 10 mg PO DAILY Discharge Orders: Discharge ED (Routine); Ordered 07/12/22 Ordered By: Tristin Worley Referrals: Lynn Montiel DO [Primary Care Provider] - Discharge Diet: Usual diet Discharge Activity: Resume usual activity Patient Instructions: Opioid Safety, Pain Management Activity Restrictions/Additional Instructions: Thank you for choosing [facility] for your healthcare needs today. Please realize this is an emergency room and that we are providing you with a medical screening exam and this may not be complete and all inclusive of all the testing and or work up that you may need to determine your ailment or severity of your illness. It is very important that you follow up as instructed or that you return to the Emergency Department should you have concerns or if your condition changes or worsens in any way. You are seen today in the emergency room for complaints of discomfort in the throat. Since you have had extensive work-up for this prior and have an appointment with Dr. Guillen would recommend you follow-up with that he will be able to do 2 more effective evaluation then we can in the emergency room. Coding Level of Care Code ED Forest Engineer for Yenifer Quick
== END 2022-07-12 16:57 | disposition home or self-care (01) ==
PROVIDERS: Emergency Provider Family Medicine; PCP Family Medicine
DX: R13.10 Dysphagia, unspecified (principal); Z79.02 Long term (current) use of antithrombotics/antiplatelets; Z87.891 Personal history of nicotine dependence; J44.9 Chronic obstructive pulmonary disease, unspecified; E78.5 Hyperlipidemia, unspecified
CPT/HCPCS: 99282

== ENCOUNTER 2022-08-13 14:52 | Emergency (ER) | payer MEDICARE, OTHER, SELFPAY ==
[2022-08-13 15:13] VITALS: BP 125/68; PULSE 95; RESP 16; TEMP 36.7; O2SAT 90; BMI 18.1
--- NOTE | 2022-08-13 18:26 | XRR_ITS ---
PROCEDURE INFORMATION: Exam: XR Thoracic Spine Exam date and time: 08/13/2022 7:18 PM Age: 87 years old Clinical indication: Pain in thoracic spine; Other: N/a; Additional info: Mid back pain TECHNIQUE: Imaging protocol: Radiologic exam of the thoracic spine. Views: 3 views. COMPARISON: CT abdomen pelvis w con* [id number] 09/03/2020 1:51 PM FINDINGS: Bones/joints: Diffuse demineralization of the bones. Kyphosis. Stable chronic mild T11 compression fracture. Age indeterminate mild T9 compression fracture. Soft tissues: Unremarkable. XR/XR thoracic spine 3V* [id number] IMPRESSION: 1. Age indeterminate mild T9 compression fracture.
--- NOTE | 2022-08-13 18:26 | XRR_ITS ---
PROCEDURE INFORMATION: Exam: XR Lumbosacral Spine Exam date and time: 08/13/2022 7:18 PM Age: 87 years old Clinical indication: Low back pain TECHNIQUE: Imaging protocol: Radiologic exam of the lumbosacral spine. Views: 2 or 3 views. COMPARISON: CT abdomen pelvis w con* [id number] 09/03/2020 1:51 PM FINDINGS: Bones/joints: Rightward lumbar curvature. The lumbar vertebral body stature is maintained. No compression fracture. Mild degenerative endplate changes. Stable severe disc space narrowing at L5-S1 with mild anterior subluxation of L5. Degenerative facets, greatest at L4-L5 and L5-S1. Soft tissues: Unremarkable. Organs: Cholecystectomy clips. Vasculature: Diffuse artery calcifications. XR/XR lumbar spine 2-3V* [id number] IMPRESSION: No acute findings.
--- NOTE | 2022-08-13 18:53 | ED_ITS ---
HPI - Back Pain/Injury General: Chief Complaint: Back Pain/Injury Stated Complaint: back pain Time Seen by Provider: 08/13/22 18:33 History of Present Illness: Patient is a 87-year-old female comes to the ED with back pain. Symptoms started 1 week ago. Patient says she bent over to sheepskin pickler something and felt a sharp pain in her back. Pain is located in the lower and mid back region. She says it is bilateral. She rates her pain currently a 10 out of 10. Patient was at chiropractor today and he performed some manipulations on patient but then decided not to do anymore and told her to come to the ED to get x-rays of spine. Denies any cauda equina symptoms. Associated symptoms: Deny abdominal pain, chills, dysuria, fatigue, fever(s), hematuria, nausea or vomiting Review of Systems Const: Denies: fever(s), chills or fatigue Eyes: Denies: change in vision or eye discomfort ENMT: Denies: throat pain, odynophagia, nasal discharge or nasal congestion Card: Denies: chest pain, palpitations, edema, swelling of feet/ankles, dyspnea on exertion or orthopnea Resp: Denies: dyspnea, productive cough or non-productive cough GI: Denies: abdominal pain, nausea, vomiting, diarrhea, constipation or hematochezia : Denies: flank pain, dysuria or hematuria Musc: Reports: back pain; Denies: neck pain or extremity swelling Skin/Breast: Denies: rash or new lesions Neuro: Denies: headache(s), numbness in extremities or weakness in extremities PFS ED PFSH: Medical History Acute rheumatoid arthritis Allergic rhinosinusitis COPD (chronic obstructive pulmonary disease) Dyslipidemia Erosive osteoarthritis of both hands Exertional shortness of breath High risk medication use Immunization counseling 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 H/O: hysterectomy History of cholecystectomy History of tonsillectomy S/P aortobifemoral bypass surgery Family History Other CAD (coronary artery disease) Cancer Rheumatoid arthritis Social History Smoking and tobacco status: never smoked Quit status (tobacco): has quit using tobacco Year quit tobacco: 2016 Former quit date comment: 2PPD x 60 Years, started smoking at age 19 Second hand smoke exposure: No Smoking risk assessment/counseling performed?: No Alcohol intake: never Counseling given: No Substance/Drug Use: never Counseling given: No Lives independently: Yes Household members: none Marital status: / Current occupational status: retired Do you think of yourself as: Straight/Heterosexual Current gender identity: Female Female Reproductive History: Para: 1 Spontaneous abortions: No Physical Exam Const: COMMON NORMALS: patient oriented x3 and alert HENMT: COMMON NORMALS: normocephalic HEAD & SCALP: normocephalic MOUTH: Normal oral and palatal mucosa present THROAT: posterior oropharynx normal and uvula midline Neck/C-Spine: COMMON NORMALS: supple GENERAL: Yes normal visual inspection Resp: COMMON NORMALS: normal respiratory effort, No retractions, No use of accessory muscles and clear to auscultation bilaterally AUSCULTATION: clear to auscultation bilaterally Cardio: COMMON NORMALS: regular rate, regular rhythm, S1 normal heart sound present, S2 normal heart sound present, No gallops present (Cardio), No clicks present (Cardio), No murmurs present (Cardio) and Peripheral pulses 2+ throughout RATE: regular rate RHYTHM: regular rhythm HEART SOUNDS: S1 normal heart sound present and S2 normal heart sound present PERIPHERAL PULSES: Peripheral pulses 2+ throughout GI: COMMON NORMALS: Normal to inspection, nondistended, normoactive bowel sounds present, Soft to palpation, non-tender and no masses PALPATION: Yes Soft to palpation : COMMON NORMALS: Yes no CVA tenderness BLADDER/KIDNEY EXAM: Yes no CVA tenderness Back/Pelvis: COMMON NORMALS: no CVA tenderness THORACIC SPINE/UPPER BACK: Yes thoracic spinal tenderness T-spine tenderness location: T9, T10, T11 and T12 and Yes paraspinal muscle tenderness Thoracic paraspinal muscle tenderness: bilateral LUMBAR SPINE/LOWER BACK: Yes pain with ROM and Yes paraspinal muscle tenderness Lumbar paraspinal muscle tenderness: bilateral Extremity: COMMON NORMALS: normal to inspection Neuro: COMMON NORMALS: patient oriented x3 SENSORIUM/ORIENTATION: Yes alert GAIT: Yes Normal gait present Skin: GENERAL SKIN EXAM: dry skin Course Vital Signs: Vital signs: Vital Signs Temperature 98.1 F 08/13/22 15:13 Pulse Rate 95 08/13/22 15:13 Respiratory Rate 16 08/13/22 19:36 Blood Pressure 125/68 08/13/22 15:13 Pulse Oximetry 90 08/13/22 15:13 Oxygen Delivery Me thod Room Air 08/13/22 15:13 MDM - Back Pain/Injury Medical Decision Making Patient is a 87-year-old female comes to the ED with back pain. Symptoms started 1 week ago. Patient says she bent over to sheepskin pickler something and felt a sharp pain in her back. Pain is located in the lower and mid back region. She says it is bilateral. She rates her pain currently a 10 out of 10. Patient was at chiropractor today and he performed some manipulations on patient but then decided not to do anymore and told her to come to the ED to get x-rays of spine. Denies any cauda equina symptoms. Vitals are stable. Patient has some thoracic spinal tenderness around T9-T12 and paraspinal muscle tenderness bilaterally in the thoracic spine as well. Patient also has some lumbar paraspinal muscle tenderness bilaterally as well. X-ray of lumbar spine showed no acute fractures or findings. X-ray of thoracic spine showed a mild T9 compression fracture. Patient was put in a TLSO brace and I placed order with case management for patient be referred to Dr. Toribio for follow-up on thoracic vertebrae compression fracture. Patient was given pain med and muscle relaxer here in the ED and symptoms were controlled. She was stable for discharge home diagnosed with compression fracture of thoracic vertebrae and low back strain. She was discharged home with a prescription for hydrocodone and a muscle relaxer. Return to ED precautions given. Patient understood and agreed with plan. Labs Radiology Impressions Lumbar Spine X-Ray 08/13/22 18:26 IMPRESSION: No acute findings. Thoracic Spine X-Ray 08/13/22 18:26 IMPRESSION: 1. Age indeterminate mild T9 compression fracture. Discharge Plan Discharge Patient Disposition: Home Clinical Impression: Compression fracture of thoracic vertebra Qualifiers: Encounter type: initial encounter Thoracic vertebra fracture level: T9 Qualified Code(s): S22.070A - Wedge compression fracture of T9-T10 vertebra, initial encounter for closed fracture Low back strain Qualifiers: Encounter type: initial encounter Qualified Code(s): S39.012A - Strain of muscle, fascia and tendon of lower back, initial encounter Condition: Stable Prescriptions: New methocarbamol 750 mg tablet 750 mg PO Q8H PRN (Reason: Back muscle spasms and pain) Qty: 20 0RF No Action Lactobacillus acidophilus [Acidophilus] Capsule 10 mg PO DAILY Rx Instructions: administer with large glass of water leflunomide 20 mg tablet See Rx Instructions .ROUTE .COMPLEX Qty: 90 0RF Dose Instruction: TAKE 1 TABLET BY MOUTH EVERY DAY Rx Instructions: TAKE 1 TABLET BY MOUTH EVERY DAY prednisone 10 mg tablet See Rx Instructions PO .COMPLEX PRN (Reason: joint pain) Qty: 30 1RF Rx Instructions: take 1 or 2 tab daily for 3-7 days prn joint pain flare PO PRN; pantoprazole 40 mg tablet,delayed release (DR/EC) 40 mg PO DAILY Qty: 30 8RF tramadol 50 mg tablet 50 mg PO BID PRN (Reason: pain) Qty: 60 0RF dicyclomine 10 mg capsule 10 mg PO TID PRN (Reason: abdominal distention) Qty: 120 2RF clopidogrel [Plavix] 75 mg tablet 75 mg PO DAILY Qty: 90 3RF cilostazol 100 mg tablet 100 mg PO BID Rx Instructions: Take 1 tablet by mouth twice daily Zyrtec 10 mg capsule 10 mg PO DAILY Discharge Orders: Discharge ED (Routine); Ordered 08/13/22 Ordered By: Babar Pineda Referrals: Lynn Montiel DO [Primary Care Provider] - Discharge Diet: Regular Discharge Activity: Increase activity as tolerated Patient Instructions: Low Back Strain (ED), Thoracolumbar Fracture (ED), Opioid Safety Activity Restrictions/Additional Instructions: Follow-up with medical provider as directed. Case management should be contacting you in the next several days to set up an appointment with Dr. Toribio the orthospine specialist for follow-up on T9 compression fracture. Wear TLSO brace. Take medications as prescribed. Return to the ER or your medical provider if condition worsens. Please read and understand discharge instructions. Thank you for choosing [facility] for your healthcare needs today. Please realize this is an emergency room and that we are providing you with a medical screening exam and this may not be complete and all inclusive of all the testing and or work up that you may need to determine your ailment or severity of your illness. It is very important that you follow up as instructed or that you return to the Emergency Department should you have concerns or if your condition changes or worsens in any way. Coding Level of Care Code ED Certified Endoscopy Technician for Yenifer Quick
[2022-08-13 19:36] VITALS: RESP 16
[2022-08-13] MEDS: morphine 4 mg/mL SDV 1 mL IM (19:36)
[2022-08-13] MEDS: orphenadrine 30 mg/mL Inj 2 mL 60 MG IM (19:37)
[2022-08-13] MEDS: HYDROcodone-acetaminophen 5-325 mg Tablet 2 TAB PO (21:44)
--- NOTE | 2022-08-13 21:44 | PC.NURSE ---
MEDICATION SENT HOME WITH PT PER ROLAND MARINO
--- NOTE | 2022-08-15 05:07 | DCPLANNER ---
Addendum entered by Grace Menchaca 08/23/22 10:27: Patient had a follow up appointment scheduled with ortho - patient did attend appointment. Original Note: seaport planning manager had message to schedule a follow up appointment for patient with ortho. seaport planning manager sent patients information to the front office staff at ortho. Patients information will be printed and reviewed. Clinic will call patient with appointment information.
== END 2022-08-13 21:45 | disposition home or self-care (01) ==
PROVIDERS: Emergency Provider Physician Assistant; PCP Family Medicine
DX: S22.070A Wedge compression fracture of T9-T10 vertebra, initial encounter for closed fracture (principal); S39.012A Strain of muscle, fascia and tendon of lower back, initial encounter; Z79.02 Long term (current) use of antithrombotics/antiplatelets; J44.9 Chronic obstructive pulmonary disease, unspecified; E78.5 Hyperlipidemia, unspecified; Z87.891 Personal history of nicotine dependence; X50.1XXA Overexertion from prolonged static or awkward postures, initial encounter
CPT/HCPCS: 72072; 72100; 96372; 99284; J2270; J2360

== ENCOUNTER 2022-08-17 09:01 | Outpatient (CLI) | payer MEDICARE, OTHER, SELFPAY ==
--- NOTE | 2022-08-17 09:13 | MR_ITS ---
WS: [id number] MRI NECK with and without CONTRAST. COMPARISON: MRI internal auditory canals 04/02/2020 Multiplanar, multisequence imaging is performed with and without contrast. MultiHance 10 mL. Markedly increased cervical lordosis. Disc spaces are narrowed and desiccated. C6 anterolisthesis by 3.4 mm. Volume loss within the visualized brain. Due to the marked increase in lordosis there is variable heterogeneity of signal throughout the soft tissues. There is no mass identified at the tongue base or through the oropharynx. Torus tubarius is negative. No adenopathy. No mass within the salivary glands. MR/MR orbit face neck wo/w* [id number] IMPRESSION: 1. No mass identified in the tongue base or in the oropharynx by MRI. 2. No adenopathy.
[2022-08-17] MEDS: gadobenate dimeglumine 20 mL vial IV (10:58)
== END 2022-08-17 09:02 | disposition home or self-care (01) ==
LOC: RAD 09:04
PROVIDERS: PCP Family Medicine; Visit Provider Otolaryngology
DX: D37.05 Neoplasm of uncertain behavior of pharynx (principal); J37.0 Chronic laryngitis; R06.00 Dyspnea, unspecified
CPT/HCPCS: 70543; A9577

== ENCOUNTER → 2022-08-19 10:10 | Outpatient (BNVA) | payer MEDICARE, OTHER, SELFPAY | PROVIDERS: PCP Family Medicine; Referring Provider Physician Assistant; Visit Provider Orthopaedic Surgery | DX: M48.54XA Collapsed vertebra, not elsewhere classified, thoracic region, initial encounter for fracture (principal); M48.56XA Collapsed vertebra, not elsewhere classified, lumbar region, initial encounter for fracture | CPT/HCPCS: 99204 ==

== ENCOUNTER 2022-08-25 15:35 | Outpatient (CLI) | payer MEDICARE, OTHER, SELFPAY ==
--- NOTE | 2022-08-25 16:00 | MR_ITS ---
WS: [id number] MRI THORACIC SPINE WITHOUT CONTRAST TECHNIQUE: Sagittal T1, T2 and STIR imaging. Axial T2 imaging. Noncontrast imaging obtained. CLINICAL INFORMATION: fracture COMPARISON: Radiograph August 13, 2022 FINDINGS: Moderate thoracic kyphosis. Acute compression inferior endplate T9 with fracture cleft and diffuse ed dillon. Minimal retropulsion of the posterior inferior cortex with slight effacement of ventral thecal s ac. No significant central canal stenosis. Mild chronic appearing anterior wedging T8 and T11. No edema in these locations. Mild disc bulging T1 2-L1 and L1-L2. Incidental hemangioma L2 vertebral body. Normal caliber thoracic aorta. MR/MR thoracic spin wo con* [id number] IMPRESSION: 1. Acute compression inferior endplate T9 with fracture cleft and diffuse leonardo a. Minimal retropulsion of the posterior inferior cortex with slight effacement of ventral thecal sac. 2. No significant central canal stenosis.
--- NOTE | 2022-08-25 16:45 | MR_ITS ---
WS: [id number] MRI LUMBAR SPINE NONCONTRAST TECHNIQUE: Sagittal T1, T2 and STIR imaging. Axial T1 and T2 imaging. CLINICAL INFORMATION: fracture COMPARISON: CT 2017 FINDINGS: Mild lumbar curve. No acute compression. Grade 1 anterolisthesis L4 on L5 and L5 on S1. Disc space na rrowing worse L5-S1 similar to 2017. Mild chronic appearing anterior wedging at T11. L1-L2: Mild disc bulging. Narrowing of the subarticular recess bilaterally. Impingement traversing RI GHT L2 nerve root. Moderate RIGHT and mild LEFT foraminal narrowing. L2-L3: Mild disc bulging with osteophytic ridging. Impingement traversing L3 nerve roots bilaterally. Mild facet arthropathy. Mild bilateral foraminal narrowing. L3-L4: Mild disc bulging with osteophytic ridging. Mild central canal stenosis. Moderate facet arthro marcos. Mild to moderate bilateral foraminal narrowing. L4-L5: Grade 1 anterolisthesis. Moderate central canal stenosis. Narrowing subarticular recess bilate rally. Moderate facet arthropathy. Mild RIGHT foraminal narrowing. LEFT foramen is patent. L5-S1: Grade 1 anterolisthesis. Mild disc bulging with slight impingement traversing S1 nerve roots b ilaterally. Moderate facet arthropathy. Moderate RIGHT and mild LEFT foraminal narrowing. Moderate fa cet arthropathy. Visualized pelvic bony structures: Normal. Paravertebral soft tissues: Normal. Aortobifemoral bypass graft MR/MR lumbar spine wo con* [id number] IMPRESSION: 1. Mild lumbar curve. No acute compression. Slight anterolisthesis L4 on L5. G rade 1 anterolisthesis L5 on S1. 2. Impingement on the RIGHT L1-L2 subarticular recess. Small RIGHT subarticula r protrusion. 3. Mild central canal stenosis L3-L4 and moderate central canal stenosis L4-L5 . Impingement traversing L5 nerve roots bilaterally. 4. Disc osteophyte complex L5-S1 with impingement traversing RIGHT greater gerald n LEFT S1 nerve roots. 5. Mild to moderate foraminal narrowing worse at RIGHT L1-L2, bilateral L3-L4 worse in the RIGHT, RIGHT L4-L5, and RIGHT L5-S1. 6. Moderate facet arthropathy L4-L5 and L5-S1.
== END 2022-08-25 15:36 | disposition home or self-care (01) ==
LOC: RAD 15:41
PROVIDERS: PCP Family Medicine; Visit Provider Orthopaedic Surgery
DX: S32.000A Wedge compression fracture of unspecified lumbar vertebra, initial encounter for closed fracture (principal); M47.817 Spondylosis without myelopathy or radiculopathy, lumbosacral region; M51.26 Other intervertebral disc displacement, lumbar region; M25.78 Osteophyte, vertebrae; X58.XXXA Exposure to other specified factors, initial encounter
CPT/HCPCS: 72146; 72148

== ENCOUNTER → 2022-08-31 14:03 | Outpatient (BNVA) | payer MEDICARE, OTHER, SELFPAY | PROVIDERS: PCP Family Medicine; Visit Provider Orthopaedic Surgery | DX: Z01.818 Encounter for other preprocedural examination (principal); X58.XXXA Exposure to other specified factors, initial encounter; T14.8XXA Other injury of unspecified body region, initial encounter | CPT/HCPCS: 36415; 80053; 85025; 99214 ==

== ENCOUNTER → 2022-09-08 11:01 | Outpatient (BNVA) | payer MEDICARE, OTHER, SELFPAY | PROVIDERS: PCP Family Medicine; Visit Provider Family Medicine | DX: Z01.818 Encounter for other preprocedural examination (principal) | CPT/HCPCS: 85025 ==

== ENCOUNTER 2022-09-14 09:07 | Outpatient (CLI) | payer MEDICARE, OTHER, SELFPAY ==
--- NOTE | 2022-09-14 09:17 | FL_ITS ---
WS: [id number] EXAMINATION: FL barium swallow modifd [id number] REASON FOR EXAM: Other dysphagia COMPARISON: None available. ORDER DATE: 09/14/2022 9:38 AM FLUOROSCOPY TIME: 2min [id number] TECHNIQUE: The oral cavity and upper pharyngeal and laryngeal region were observed in the lateral pro jection with fluoroscopy during swallowing. Different consistencies of liquid and food were mixed with barium and administered by the speech path ologist during fluoroscopy. FINDINGS: The oral stage was unremarkable with satisfactory initiation of the swallowing reflex. Mov ement of contrast coated material through the pharynx into the upper esophagus was observed. There we re numerous episodes of penetration on the initial portion of the study. Please refer to speech patho logist report for specific details regarding swallowing function. There was no significant residual.T hicker consistencies of contrast as well as a barium tablet demonstrated a delay in the oral phase du e to patient being edentulous but otherwise does not appear to cause difficulty. FL/FL barium swallow modifd [id number] IMPRESSION: PLEASE REFER TO THE SPEECH PATHOLOGIST REPORT FOR ADDITIONAL DETAILS REGARDING THIS MODIFIED BARIUM SWALLOW STUDY.
== END 2022-09-14 09:08 | disposition home or self-care (01) ==
LOC: RAD 09:07
PROVIDERS: PCP Family Medicine; Visit Provider Specialist
DX: R13.19 Other dysphagia (principal); R06.02 Shortness of breath
CPT/HCPCS: 74230; 92611; 94010; 94726; 94729

== ENCOUNTER → 2022-09-15 14:13 | Outpatient (BNVA) | payer MEDICARE, OTHER, SELFPAY | PROVIDERS: PCP Family Medicine; Visit Provider Surgery | DX: D64.9 Anemia, unspecified (principal); K92.1 Melena; K52.9 Noninfective gastroenteritis and colitis, unspecified | CPT/HCPCS: 99203 ==

== ENCOUNTER → 2022-09-23 10:10 | Outpatient (BNVA) | payer MEDICARE, OTHER, SELFPAY | PROVIDERS: PCP Family Medicine; Visit Provider Anesthesiology Pain Medicine | DX: M47.816 Spondylosis without myelopathy or radiculopathy, lumbar region (principal); M51.37 Other intervertebral disc degeneration, lumbosacral region; M43.16 Spondylolisthesis, lumbar region; S22.070A Wedge compression fracture of T9-T10 vertebra, initial encounter for closed fracture; K92.1 Melena; X58.XXXA Exposure to other specified factors, initial encounter; D64.9 Anemia, unspecified | CPT/HCPCS: 99205 ==

== ENCOUNTER 2022-10-01 14:50 | Emergency (ER) | payer MEDICARE, OTHER, SELFPAY ==
[2022-10-01 15:09] VITALS: BP 131/86; PULSE 87; RESP 18; TEMP 36.4; O2SAT 94; BMI 17.2
[2022-10-01 15:56] LABS: Basophils # 0.1 10^3/uL (0.0-0.1); Eosinophils # 0.1 10^3/uL (0.0-0.8); Eosinophils % 1.3 %; Hematocrit 34.3 % (37.0-47.0); Hemoglobin 10.4 g/dL (11.5-15.3); Lymphocytes # 1.2 10^3/uL (0.8-4.8); Lymphocytes % 16.2 %; Mean Corpuscular HGB Conc 30.3 g/dL (30.0-36.0); Mean Corpuscular Hemoglobin 25.3 pg (28.0-34.0); Mean Corpuscular Volume 83.5 fl (81-99); Mean Platelet Volume 9.7 fL (7.4-10.4); Monocytes # 0.7 10^3/uL (0.2-0.9); Monocytes % 9.5 %; Neutrophils # 5.49 10^3/uL (1.8-7.7); Neutrophils % 71.6 %; Nucleated Red Blood Cells % 0 %; Platelet Count 255 10^3/cmm (130-400); Red Blood Count 4.11 10^6/uL (4.1-5.3); Red Cell Distribution Width 18.3 % (12.1-15.1); White Blood Count 7.7 10^3/uL (4.0-10.0)
[2022-10-01 16:19] LABS: Alanine Aminotransferase 14 U/L (0-33); Albumin Level 3.9 g/dL (3.5-5.2); Alkaline Phosphatase 215 U/L (35-105); Anion Gap 17.1 (5-19); Aspartate Amino Transferase 20 U/L (0-32); Blood Urea Nitrogen 22 mg/dL (8-23); Carbon Dioxide 27 mmol/L (22-29); Chloride 100 mmol/L (98-107); Globulin 2.8 g/dL (1.3-4.6); Glucose 139 mg/dL (65-115); Lipase 54 U/L (13-60); Osmolality Calculated 296 mOsm/kg (285-295); Potassium 4.1 mmol/L (3.5-5.1); Sodium 140 mmol/L (136-145); Total Bilirubin 0.4 mg/dL (0.15-1.2); Total Protein 6.7 g/dL (6.6-8.7)
[2022-10-01 16:54] LABS: Add Urine Microscopic? NO; Charge for UA Resulting for Rev
--- NOTE | 2022-10-01 16:57 | ED_ITS ---
HPI - Weakness General: Chief complaint: Weakness Stated complaint: weak, bloody stools Time Seen by Provider: 10/01/22 16:34 Source: patient Mode of arrival: ambulatory History of Present Illness: 87-year-old female presents emergency room states Selma Black formed stools for the last week she is concerned she may be having some bleeding. She has some chronic anemia recently her hemoglobin was tracked and was as low as 8.[address] through most of the month of August prior to that last fall she been up around 12 and 13 been trending down since January 2022. She has a history of peripheral vascular disease she was previously on cilostazol and Plavix but that was stopped. She recently was found to have a compression fracture and she is being set up to have a kyphoplasty done but has not yet been completed. She has not noticed any frankly bloody stools no hematemesis or coffee-ground she has not been taking her iron but has been using some occasional Pepto-Bismol. MD Complaint: generalized weakness Onset (ago): day(s) Duration: intermittent Location: generalized Severity: mild Relieving factors: none Exacerbating factors: none Associated symptoms: Reports melena and decreased appetite; Denies chest pain, chills, confusion, diaphoresis, dysuria, easy bruising, fever(s), headache(s), myalgias, nausea, rash, short of breath, syncope, vomiting or other Review of Systems Const: Denies: fever(s), chills or diaphoresis Card: Denies: chest pain or syncope Resp: Denies: dyspnea, productive cough or non-productive cough GI: Reports: melena; Denies: nausea or vomiting : Denies: dysuria Skin/Breast: Denies: rash or pruritus Neuro: Denies: headache(s) or confusion Nickolas/Lymph: Denies: easy bruising PFSH ED PFSH: Medical History Acute rheumatoid arthritis Allergic rhinosinusitis COPD (chronic obstructive pulmonary disease) Dyslipidemia Erosive osteoarthritis of both hands Exertional shortness of breath High risk medication use Immunization counseling 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 H/O: hysterectomy History of cholecystectomy History of tonsillectomy S/P aortobifemoral bypass surgery Family History Other CAD (coronary artery disease) Cancer Rheumatoid arthritis Social History Smoking and tobacco status: never smoked Quit status (tobacco): has quit using tobacco Year quit tobacco: 2016 Former quit date comment: 2PPD x 60 Years, started smoking at age 19 Second hand smoke exposure: No Smoking risk assessment/counseling performed?: No Alcohol intake: never Counseling given: No Substance/Drug Use: never Counseling given: No Lives independently: Yes Household members: none Marital status: / Current occupational status: retired Do you think of yourself as: Straight/Heterosexual Current gender identity: Female Female Reproductive History: Para: 1 Spontaneous abortions: No Physical Exam Const: COMMON NORMALS: no acute distress GENERAL APPEARANCE: cooperative and comfortable ORIENTATION/CONSCIOUSNESS: Yes awake, Yes oriented to person, Yes oriented to place and Yes oriented to time HENMT: COMMON NORMALS: normocephalic, atraumatic and hearing grossly normal bilaterally HEAD & SCALP: normocephalic and atraumatic Resp: COMMON NORMALS: normal respiratory effort, No retractions, No use of accessory muscles and clear to auscultation bilaterally AUSCULTATION: clear to auscultation bilaterally Cardio: COMMON NORMALS: regular rate, regular rhythm and No murmurs present (Cardio) RATE: regular rate RHYTHM: regular rhythm GI: COMMON NORMALS: Soft to palpation and No hepatosplenomegaly present AUSCULTATION: Yes normoactive bowel sounds PALPATION: Yes Soft to palpation, No Tenderness to palpation present (GI), No Guarding due to palpation present (GI) and Yes No hepatosplenomegaly present Extremity: COMMON NORMALS: normal to inspection, capillary refill normal, no clubbing, cyanosis or edema, no calf tenderness and no pedal edema Neuro: SENSORIUM/ORIENTATION: Yes oriented to person, Yes oriented to place and Yes oriented to time Skin: COMMON NORMALS: no rashes or lesions noted GENERAL SKIN EXAM: no rashes or lesions noted Course Vital Signs: Vital signs: Vital Signs Temperature 97.5 F L 10/01/22 15:09 Pulse Rate 92 10/01/22 17:56 Respiratory Rate 18 10/01/22 15:09 Blood Pressure 163/73 10/01/22 17:56 Pulse Oximetry 95 10/01/22 17:56 Oxygen Delivery Me thod Room Air 10/01/22 16:58 MDM - Weakness Medical Decision Making Hemoglobin stable rectal exam is negative for occult stool. Hemoglobin is actually slightly increased from her last hemoglobin. We will discharge back to the [facility] living recheck hemoglobin next week return if has further problems. Medical Records I reviewed the patient's medical records. Lab Data I reviewed the patient's lab results. 10/01/22 15:46 10/01/22 15:46 Laboratory Results WBC 7.7 10^3/uL (4.0-10.0) 10/01/22 15:46 RBC 4.11 10^6/uL (4.1-5.3) 10/01/22 15:46 Hgb 10.4 g/dL (11.5-15.3) L 10/01/22 15:46 Hct 34.3 % (37.0-47.0) L 10/01/22 15:46 MCV 83.5 fl (81-99) 10/01/22 15:46 MCH 25.3 pg (28.0-34.0) L 10/01/22 15:46 MCHC 30.3 g/dL (30.0-36.0) 10/01/22 15:46 RDW 18.3 % (12.1-15.1) H 10/01/22 15:46 Plt Count 255 10^3/cmm (130-400) 10/01/22 15:46 MPV 9.7 fL (7.4-10.4) 10/01/22 15:46 Neut % (Auto) 71.6 % 10/01/22 15:46 Lymph % (Auto) 16.2 % 10/01/22 15:46 [place] % (Auto) 9.5 % 10/01/22 15:46 Eos % (Auto) 1.3 % 10/01/22 15:46 Baso % (Auto) 1.0 % 10/01/22 15:46 Neut # (Auto) 5.49 10^3/uL (1.8-7.7) 10/01/22 15:46 Lymph # (Auto) 1.2 10^3/uL (0.8-4.8) 10/01/22 15:46 [place] # (Auto) 0.7 10^3/uL (0.2-0.9) 10/01/22 15:46 Eos # (Auto) 0.1 10^3/uL (0.0-0.8) 10/01/22 15:46 Baso # (Auto) 0.1 10^3/uL (0.0-0.1) 10/01/22 15:46 Nucleated RBC % (auto) 0 % 10/01/22 15:46 Nucleated RBCs # 0.0 /100WBC 10/01/22 15:46 Sodium 140 mmol/L (136-145) 10/01/22 15:46 Potassium 4.1 mmol/L (3.5-5.1) 10/01/22 15:46 Chloride 100 mmol/L (98-107) 10/01/22 15:46 Carbon Dioxide 27 mmol/L (22-29) 10/01/22 15:46 Anion Gap 17.1 (5-19) 10/01/22 15:46 BUN 22 mg/dL (8-23) 10/01/22 15:46 Creatinine 1.2 mg/dL (0.5-0.9) H 10/01/22 15:46 GFR Calculation Not Reportable 10/01/22 15:46 Glucose 139 mg/dL (65-115) H 10/01/22 15:46 Calculated Osmolality 296 mOsm/kg (285-295) H 10/01/22 15:46 Calcium 9.0 mg/dL (8.5-10.5) 10/01/22 15:46 Total Bilirubin 0.4 mg/dL (0.15-1.2) 10/01/22 15:46 AST 20 U/L (0-32) 10/01/22 15:46 ALT 14 U/L (0-33) 10/01/22 15:46 Alkaline Phosphatase 215 U/L (35-105) H 10/01/22 15:46 Total Protein 6.7 g/dL (6.6-8.7) 10/01/22 15:46 Albumin 3.9 g/dL (3.5-5.2) 10/01/22 15:46 Globulin 2.8 g/dL (1.3-4.6) 10/01/22 15:46 Lipase 54 U/L (13-60) 10/01/22 15:46 Urine Color Yellow (Yellow) 10/01/22 16:50 Urine Appearance Clear (CLEAR) 10/01/22 16:50 Urine pH 5 (5-7) 10/01/22 16:50 Ur Specific [place] 1.020 (1.005-1.030) 10/01/22 16:50 Urine Protein Neg (Negative) 10/01/22 16:50 Urine Glucose (UA) Norm (Normal) 10/01/22 16:50 Urine Ketones Negative (Negative) 10/01/22 16:50 Urine Blood Neg (Negative) 10/01/22 16:50 Urine Nitrate Negative (Negative) 10/01/22 16:50 Urine Bilirubin Neg (Negative) 10/01/22 16:50 Urine Urobilinogen Norm mg/dL (Negative) 10/01/22 16:50 Ur Leukocyte Esterase Negative (Negative) 10/01/22 16:50 Discharge Plan Discharge Patient Disposition: Home Clinical Impression: Anemia Condition: Stable Prescriptions: No Action Lactobacillus acidophilus [Acidophilus] Capsule 10 mg PO DAILY Rx Instructions: administer with large glass of water leflunomide 20 mg tablet See Rx Instructions .ROUTE .COMPLEX Qty: 90 0RF Dose Instruction: TAKE 1 TABLET BY MOUTH EVERY DAY Rx Instructions: TAKE 1 TABLET BY MOUTH EVERY DAY pantoprazole 40 mg tablet,delayed release (DR/EC) 40 mg PO BID Qty: 60 2RF tramadol 50 mg tablet 50 mg PO BID PRN (Reason: pain) Qty: 60 0RF cyclobenzaprine 5 mg tablet 5 mg PO TID PRN (Reason: muscle spasm) Qty: 90 0RF sucralfate [Carafate] 1 gram tablet 1 g PO BID 28 Days Qty: 56 0RF clopidogrel [Plavix] 75 mg tablet 75 mg PO DAILY Qty: 90 3RF Hold Instructions: Doctor's Order dicyclomine 10 mg capsule See Rx Instructions .ROUTE .COMPLEX Qty: 120 2RF Dose Instruction: take 1 capsule BY MOUTH THREE TIMES DAILY NEEDED FOR abdominal distention Rx Instructions: take 1 capsule BY MOUTH THREE TIMES DAILY NEEDED FOR abdominal distention methocarbamol 750 mg tablet 750 mg PO Q8H PRN (Reason: Back muscle spasms and pain) Qty: 20 0RF cilostazol 100 mg tablet 100 mg PO BID Rx Instructions: Take 1 tablet by mouth twice daily Zyrtec 10 mg capsule 10 mg PO DAILY Discharge Orders: Discharge ED (Routine); Ordered 10/01/22 Ordered By: Tristin Worley Referrals: Lynn Montiel DO [Primary Care Provider] - Discharge Diet: Usual diet Discharge Activity: Increase activity as tolerated Patient Instructions: Opioid Safety, Pain Management Activity Restrictions/Additional Instructions: You were seen today for weakness complaints of black stools. Your hemoglobin is actually improved from the last hemoglobin. Recommend you follow-up with your primary care doctor to evaluate your chronic anemia. 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
[2022-10-01 16:58] VITALS: BP 140/103; PULSE 87; O2SAT 100
[2022-10-01 16:59] LABS: Bilirubin Urine Neg (Negative); Blood Urine Neg (Negative); Glucose Urine UA Norm (Normal); Ketones Urine Negative (Negative); Leukocyte Esterase Urine Negative (Negative); Nitrate Urine Negative (Negative); Protein Urine Neg (Negative); Urine Appearance Clear (CLEAR); Urine Color Yellow (Yellow); Urobilinogen Urine Norm (Negative); pH Urine 5 (5-7)
[2022-10-01 17:56] VITALS: BP 163/73; PULSE 92; O2SAT 95
== END 2022-10-01 17:58 | disposition home or self-care (01) ==
PROVIDERS: Physician Assistant; Emergency Provider Family Medicine; PCP Family Medicine
DX: D64.9 Anemia, unspecified (principal); Z79.02 Long term (current) use of antithrombotics/antiplatelets; Z87.891 Personal history of nicotine dependence; J44.9 Chronic obstructive pulmonary disease, unspecified; E78.5 Hyperlipidemia, unspecified
CPT/HCPCS: 36415; 80053; 81003; 83690; 85025; 99283

== ENCOUNTER → 2022-10-11 10:29 | Outpatient (BNVA) | payer MEDICARE, OTHER, SELFPAY | PROVIDERS: PCP Family Medicine; Visit Provider Internal Medicine Rheumatology | DX: M05.79 Rheumatoid arthritis with rheumatoid factor of multiple sites without organ or systems involvement (principal); M15.4 Erosive (osteo)arthritis; Z79.899 Other long term (current) drug therapy; Z71.85 Encounter for immunization safety counseling | CPT/HCPCS: 99214 ==

== ENCOUNTER 2022-10-13 09:38 | Day surgery (SDC) | payer MEDICARE, OTHER, SELFPAY ==
[2022-10-12 10:49] VITALS: BMI 16.4
[2022-10-13 10:05] VITALS: BP 162/112; RESP 18; TEMP 36.9
[2022-10-13] MEDS: sodium chloride 0.9% 1,000 ML 30 ML IV (10:05)
--- NOTE | 2022-10-13 10:19 | ANES.PREANE2 ---
Pre-Anesthetic Assessment Height/Weight: Height 1.52 m Weight 38.102 kg Temp Resp BP 98.5 F 18 162/112 10/13/22 10:05 10/13/22 10:05 10/13/22 10:05 Preop Diagnosis: abdominal pain, diarrhea Operation Date: 10/13/22 11:00 Proposed Procedures p Colonoscopy 79560, D64.9,K92.1, K52.9(Not Applicable) - Benjamin Piesron, DO Was Beta Lucia taken within 24 hours: N/A Was Clonidine taken within 24 hours: N/A Last intake: Intake Last Liquid Date 10/12/22 Last Liquid Time 22:00 Last Solid Date 10/11/22 Social No tobacco (quit 2016) Exam alert and oriented x 3 Airway Submandibular: within normal limits Cervical ROM: within normal limits Mallampati: Class II Dentition: false History/ROS No significant history except as noted Pulmonary Chronic Obstructive Pulmonary Disease CV/HEM Peripheral Vascular Disease fem pop 2017 None reported Hepatic None reported GI Gastroesophageal Reflux Disease Metabolic None reported Musc/skel Rheumatoid Arthritis on prednisone Neuropsych None reported Anesthetic Plan ASA status: 3 Anesthesia: MAC Risk of > 500 ml blood loss (7ml/kg in children): No Medications/Allergies Home Medications Medication Instructions Recorded Confirmed Last Taken Type Lactobacillus acidophilus 10 mg PO DAILY 07/29/20 10/22/22 10/12/22 History (Acidophilus capsule) cetirizine 10 mg capsule (Zyrtec) 10 mg PO DAILY 02/03/22 10/22/22 10/12/22 History cilostazol 100 mg tablet 100 mg PO BID 02/03/22 10/22/22 09/17/22 History clopidogrel 75 mg tablet (Plavix) 75 mg PO DAILY #90 tabs 06/08/22 10/22/22 09/17/22 Rx cyclobenzaprine 5 mg tablet 5 mg PO TID PRN muscle spasm #90 08/19/22 10/22/22 10/12/22 Rx tabs dicyclomine 10 mg capsule See Rx Instructions .Route 08/27/22 10/22/22 10/12/22 Rx .COMPLEX #120 caps pantoprazole 40 mg tablet,delayed 40 mg PO BID #60 tabs 09/14/22 10/22/22 10/12/22 Rx release methocarbamol 750 mg tablet 750 mg PO Q8H PRN Back muscle 07/13/23 07/28/23 07/18/23 Rx spasms and pain #20 tabs tramadol 50 mg tablet 50 mg PO Q6H PRN pain 7 days #28 10/07/22 10/22/22 10/11/22 Rx tabs leflunomide 20 mg tablet See Rx Instructions .Route 10/11/22 10/22/22 10/12/22 Rx .COMPLEX #90 tabs prednisone 10 mg tablet See Rx Instructions PO .COMPLEX 10/11/22 10/22/22 Unknown History PRN arthritis sucralfate 1 gram tablet (Carafate) 1 g PO BID 4 weeks #56 tabs 10/18/22 10/22/22 Unknown Rx Allergies Allergy/AdvReac Type Severity Reaction Status Date / Time amoxicillin [From Augmentin] Allergy ALGY-Swell Verified 10/22/22 11:07 Lip/Tongue/Throat clavulanic acid Allergy ALGY-Swell Verified 10/22/22 11:07 [From Augmentin] Lip/Tongue/Throat gabapentin Allergy ADR-Confusi Verified 10/22/22 11:07 on Sulfa (Sulfonamide Allergy ALGY-Swell Verified 10/22/22 11:07 Antibiotics) Lip/Tongue/Throat Current Medications Generic Name Dose Route Start Last Admin Trade Name Freq PRN Reason Stop Dose Admin Sodium Chloride 1,000 mls @ 30 mls/hr 10/13/22 09:45 10/13/22 10:05 Sodium Chloride 0.9% IV 10/14/22 09:44 30 mls/hr .Q24H JAROD Administration PFSH Anesthesia Medical History Acute rheumatoid arthritis Allergic rhinosinusitis COPD (chronic obstructive pulmonary disease) Dyslipidemia Erosive osteoarthritis of both hands Exertional shortness of breath High risk medication use Immunization counseling 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 H/O: hysterectomy History of cholecystectomy History of tonsillectomy S/P aortobifemoral bypass surgery Family History Other CAD (coronary artery disease) Cancer Rheumatoid arthritis Social History Smoking and tobacco status: never smoked Quit status (tobacco): has quit using tobacco Year quit tobacco: 2016 Former quit date comment: 2PPD x 60 Years, started smoking at age 19 Second hand smoke exposure: No Smoking risk assessment/counseling performed?: No Alcohol intake: never Counseling given: No Substance/Drug Use: never Counseling given: No Lives independently: Yes Household members: none Marital status: / Current occupational status: retired Do you think of yourself as: Straight/Heterosexual Current gender identity: Female Female Reproductive History Para: 1 Spontaneous abortions: No Data Anesthesia Cardiac Studies: Echocardiogram Ultrasound 01/18/20 Sestamibi Stress Test (Cardiology) 09/01/20
[2022-10-13 10:37] VITALS: RESP 18; O2SAT 91
[2022-10-13] MEDS: fentaNYL 50 mcg/mL INJ 2mL IVP (10:37)
--- NOTE | 2022-10-13 12:01 | W.PM.OPSUD ---
Surgery/Procedure H&P Update DATE OF PROCEDURE: October 13, 2022 DATE H&P PERFORMED: 09/15/22 H&P UPDATE INFORMATION: I have reviewed H&P completed within last 30 days, I have examined patient prior to procedure and No changes to prior documentation PREOP DIAGNOSIS: abdominal pain, diarrhea PLANNED PROCEDURE: Operation Date: 10/13/22 11:00 Proposed Procedures p Colonoscopy 40473, D64.9,K92.1, K52.9(Not Applicable) - Benjamin Pierson DO
[2022-10-13 12:42] VITALS: BP 139/66; PULSE 68; RESP 14; TEMP 36.1; O2SAT 98
[2022-10-13 12:52] VITALS: BP 158/91; PULSE 80; RESP 16; O2SAT 96
[2022-10-13 13:08] VITALS: BP 162/80; PULSE 88; RESP 18; O2SAT 92
--- NOTE | 2022-10-13 14:59 | ANE.PACU2 ---
Inpatient post-anesthesia follow up: Airway intact: Yes Vital signs: Temperature 97 F Pulse Rate 88 Respiratory Rate 18 Blood Pressure 162/80 Pulse Oximetry 92 Oxygen Delivery Me thod Room Air Oxygen Flow Rate 3 Fraction of Inspir ed Oxygen Hydration adequate: Yes Nausea and vomiting: No Pain level: 2 Mental status: Baseline
== END 2022-10-13 14:00 | disposition home or self-care (01) ==
PROVIDERS: PCP Family Medicine; Visit Provider Surgery
PROC: 0DJD8ZZ Inspection of Lower Intestinal Tract, Via Natural or Artificial Opening Endoscopic (ICD-10-PCS; CPT 45378; principal; 2022-10-13 11:00)
PROC: 0DJ08ZZ Inspection of Upper Intestinal Tract, Via Natural or Artificial Opening Endoscopic (ICD-10-PCS; CPT 43235; 2022-10-13 11:00)
DX: D64.9 Anemia, unspecified (principal); K92.1 Melena; K52.9 Noninfective gastroenteritis and colitis, unspecified; K21.9 Gastro-esophageal reflux disease without esophagitis; M05.9 Rheumatoid arthritis with rheumatoid factor, unspecified; Z79.52 Long term (current) use of systemic steroids; J44.9 Chronic obstructive pulmonary disease, unspecified; E78.5 Hyperlipidemia, unspecified; Z87.891 Personal history of nicotine dependence; K44.9 Diaphragmatic hernia without obstruction or gangrene; K57.30 Diverticulosis of large intestine without perforation or abscess without bleeding
CPT/HCPCS: 43235; 45380; 82274; 83630; 87493; 87506; 88305; J2704; J3010; J7030

== ENCOUNTER → 2022-10-18 14:02 | Outpatient (BNVA) | payer MEDICARE, OTHER, SELFPAY | PROVIDERS: PCP Family Medicine; Visit Provider Anesthesiology Pain Medicine | DX: M47.816 Spondylosis without myelopathy or radiculopathy, lumbar region (principal); S22.070A Wedge compression fracture of T9-T10 vertebra, initial encounter for closed fracture; D50.0 Iron deficiency anemia secondary to blood loss (chronic); M51.37 Other intervertebral disc degeneration, lumbosacral region; M43.16 Spondylolisthesis, lumbar region; X58.XXXA Exposure to other specified factors, initial encounter | CPT/HCPCS: 64493; 64494; 64495; J3490 ==

== ENCOUNTER → 2022-10-22 11:32 | Outpatient (BNVA) | payer MEDICARE, OTHER, SELFPAY | PROVIDERS: PCP Family Medicine; Visit Provider Family Medicine | DX: Z01.818 Encounter for other preprocedural examination (principal) | CPT/HCPCS: 80053; 85025 ==

== ENCOUNTER 2022-10-27 12:23 | Outpatient (RCR) | payer MEDICARE, OTHER, SELFPAY | END 2022-11-05 23:59 | disposition home or self-care (01) | LOC: SST 12:23 | PROVIDERS: PCP Family Medicine; Visit Provider Otolaryngology | DX: R13.12 Dysphagia, oropharyngeal phase (principal); R49.0 Dysphonia | CPT/HCPCS: 92524; 92610 ==